=== PATIENT | male | born 1955 | race Two or more races ===

== ENCOUNTER 2024-02-21 15:29 | Emergency (ER) | payer MEDICARE, MEDICAID, SELFPAY ==
--- NOTE | 2024-02-21 15:33 | EKG_ITS ---
[facility] Test Date: 2024-02-21 Pat Name: HOMERO IGNACIO Department: Room: - Gender: Male Detail Supervisor: : 1955 Requested By: Alexis Moura (PERMASTONE APPLICATOR) Order Number: [id number] Reading MD: Alexis Moura (PERMASTONE APPLICATOR) Measurements Intervals [place] Rate: 84 P: 36 MS: 145 QRS: 9 QRSD: 92 T: 34 QT: 368 QTc: 437 Interpretive Statements SINUS RHYTHM Compared to ECG 05/15/2023 11:26:15 T-wave abnormality no longer present /store/S0/[id number]
[2024-02-21 15:40] VITALS: BP 124/89; PULSE 116; RESP 18; TEMP 36.4; O2SAT 95
[2024-02-21 15:53] VITALS: BP 135/85; PULSE 93; RESP 18; TEMP 36.5; O2SAT 98; BMI 29.0
--- NOTE | 2024-02-21 15:54 | XR_ITS ---
Examination: CT brain head without contrast. 2-D sagittal coronal reconstructions Date and time of exam:February 21, 2024 1559 hours INDICATIONS: Onset headaches dizziness blurred vision episodes today COMPARISON: May 15, 2023 CTDI: vol (mGy):49.4 DLP: (mGycm):1082 Technique: Multiple CT axial sections of the brain have been obtained, 5 mm slice thickness. Contrast has not been administered. 2-D sagittal, coronal reconstructions have been obtained Low dose protocols were performed. One or more of the following dose reduction techniques were used; automated exposure control, adjustment of the mA and/or KV according to patient size, use of iterative reconstruction technique. Findings: No significant ventricular enlargement. Intra-axial or extra-axial hemorrhage density is not seen. No mass effect or midline shift Basal cisterns are not remarkable. Fourth ventricle is midline. Cranial vault intact. Impression: Negative for acute hemorrhage, mass effect or midline shift His symptoms persist, consider brain MRI follow-up stroke protocol
--- NOTE | 2024-02-21 15:55 | PD.EDRME ---
Rapid Medical Screening Exam RME Arrival date/time: 02/21/24 15:29 68-year-old male presents to the emergency department today with complaints of chest pain patient was reports inability to see out of his right eye x 2 weeks patient was seen by lobster man Chief Complaint: Chest Pain Time Seen by Provider: 02/21/24 15:33 Vital signs: Vital Signs Temperature 97.6 F 02/21/24 15:40 Pulse Rate 116 H 02/21/24 15:40 Respiratory Rate 18 02/21/24 15:40 Blood Pressure 124/89 H 02/21/24 15:40 Pulse Oximetry (%) 95 02/21/24 15:40 Oxygen Delivery Method Room Air 02/21/24 15:40
[2024-02-21 16:33] LABS: Basophils # (Auto) 0.1 Thou/mm3 (0.0-0.2); Basophils % (Auto) 1 % (0-2.5); Eosinophils # (Auto) 0.1 Thou/mm3 (0.0-0.5); Eosinophils % (Auto) 2 % (0-10); Hemoglobin 12.2 g/dL (13.5-16.0); Immature Granulocytes % (Auto) 0 % (0-0); Immature Granulocytes Auto 0.02 Thou/mm3 (0.00-0.00); Lymphocytes # (Auto) 1.7 Thou/mm3 (1.0-4.8); Lymphocytes % (Auto) 24 % (10-50); Mean Corpuscular HGB Conc 33.9 g/dl (31.0-37.0); Mean Corpuscular Hemoglobin 29.8 pg (25.0-35.0); Mean Corpuscular Volume 88 fL (80-100); Monocytes # (Auto) 0.7 Thou/mm3 (0.0-0.8); Monocytes % (Auto) 9 % (0-12); Neutrophils # (Auto) 4.6 Thou/mm3 (1.8-7.7); Neutrophils % (Auto) 64 % (37-80); Nucleated Red Blood Cell % 0 /100 WBC (0); Platelet Count 250 Thou/mm3 (140-440); RDW Standard Deviation 41.5 fL (35.1-43.9); Red Blood Count 4.09 Miln/mm3 (4.50-5.90); White Blood Count 7.2 Thou/mm3 (3.8-10.6)
[2024-02-21 16:49] LABS: INR 1.1 (0.9-1.3); Partial Thromboplastin Time 27.3 Seconds (22.0-36.0); Prothrombin Time 12.1 Seconds (9.0-12.2)
[2024-02-21 16:53] LABS: B-Type Natriuretic Peptide < 20 pg/mL (0-100)
[2024-02-21 16:55] LABS: Alanine Aminotransferase 26 U/L (10-49); Albumin, Serum 4.2 gm/dL (3.4-4.8); Albumin/Globulin Ratio 1.7 (1.2-2.2); Alkaline Phosphatase 87 U/L (46-116); Anion Gap 7 (7-16); Aspartate Amino Transferase 19 U/L (0-34); BUN/Creatinine Ratio 11 Ratio (12-20); Bilirubin,Total 0.5 mg/dL (0.3-1.2); Blood Urea Nitrogen 10 mg/dL (9-23); Calcium 8.6 mg/dL (8.3-10.6); Calcium (Corrected) 8.6 mg/dL (8.5-10.1); Carbon Dioxide 27.1 mMol/L (20.0-31.0); Chloride 104 mMol/L (98-107); Creatinine (Component) 0.9 mg/dL (0.6-1.3); Estimated Creatinine Clearance 80.2 mL/min (>60); Globulin 2.5 gm/dL (2.3-3.5); Glucose 122 mg/dL (74-106); Magnesium 2.1 mg/dL (1.6-2.6); Osmolality,Calculated 275 (275-295); Potassium 3.9 mMol/L (3.4-5.1); Sodium 138 mMol/L (136-145); Total Protein 6.7 gm/dL (5.7-8.2); Troponin I < 0.020 ng/mL (0.0-0.045); eGFR > 60 See Note
[2024-02-21 17:55] LABS: Amphetamine/Methamp Scrn,U Negative (Negative); Barbiturate Screen,Urine Negative (Negative); Benzodiazepines Screen,Urine Positive (Negative); Benzoylecgonine Screen, Ur Negative (Negative); Fentanyl Screen,Urine Negative (Negative); Opiate Screen,Urine Negative (Negative); THC Screen,Urine Negative (Negative)
--- NOTE | 2024-02-21 18:02 | PD.EDADULT ---
ED General RME/HPI General Chief complaint: Chest Pain Stated complaint: chest pain / blurry vision Time Seen by Provider: 02/21/24 15:33 Arrival date/time: 02/21/24 15:29 CC: Chest pain and blindness in 1 eye HPI ongoing chest pain since 1 hour prior to arrival blindness in the eye has been 2 weeks patient was seen by brewery representative who determined that the patient had a retinal vein occlusion. Patient was placed on eyedrops by that brewery representative. Patient states he has had chronic pain for some time. Intermittent in nature RME / HPI RME / HPI narrative: 02/21/24 15:29 68-year-old male presents to the emergency department today with complaints of chest pain patient was reports inability to see out of his right eye x 2 weeks patient was seen by brewery representative Related Data Home Medications ?Medication ?Instructions ?Recorded ?Confirmed alprazolam 1 mg tablet 1 mg PO BID PRN Anxiety 08/02/21 08/03/21 aspirin 81 mg tablet,delayed 81 mg PO QDAY 08/02/21 08/03/21 release atorvastatin 80 mg tablet 80 mg PO QDAY 08/02/21 08/03/21 ezetimibe 10 mg tablet 10 mg PO QDAY 08/02/21 08/03/21 folic acid 1 mg tablet 1 mg PO QDAY 08/02/21 08/03/21 hydrocodone 10 mg-acetaminophen 1 tab PO BID PRN Pain 08/02/21 08/03/21 325 mg tablet isosorbide mononitrate 60 mg 60 mg PO QDAY 08/02/21 08/03/21 tablet,extended release 24 hr metoprolol succinate 25 mg capsule 25 mg PO QDAY 08/02/21 08/03/21 sprinkle, ext. release 24 hr nifedipine 30 mg tablet,extended 30 mg PO QDAY 08/02/21 08/03/21 release pantoprazole 40 mg tablet,delayed 40 mg PO QDAY 08/02/21 08/03/21 release paroxetine HCl 20 mg tablet 20 mg PO QDAY 08/02/21 08/03/21 Previous Rx's ?Medication ?Instructions ?Recorded doxycycline hyclate 100 mg tablet 100 mg PO QDAY #7 tabs 08/06/21 Allergies Allergy/AdvReac Type Severity Reaction Status Date / Time strawberry Allergy Intermediate Irritable Verified 12/04/24 15:31 Latex, Natural Rubber Allergy Mild Rash Verified 02/21/24 15:31 carvedilol Allergy Unknown Anaphylaxis Verified 02/21/24 15:31 Corticosteroids Allergy Unknown Verified 02/21/24 15:31 (Glucocorticoids) Review of Systems Review of Systems Narrative Review of Systems: GEN: No fever, no chills, no weight loss EYES: No discharge, no visual changes, no pain HEENT: No ear pain, no congestion, no sore throat PULM: No shortness of breath, no cough, no congestion CV: + chest pain, no dyspnea on exertion, no palpitations GI: No nausea, no vomiting, no diarrhea, no pain, no constipation : No frequency, no urgency, no dysuria MUSC/SKEL: No joint pain, no back pain SKIN: No rash PSYCH: No hallucinations, no depression HEME/LYMPH: No easy bleeding or bruising tendencies NEURO: No weakness, no headache Past Medical History Past Medical History NEUROLOGIC: Negative Seizures CARDIAC: Positive Cardiac Disorders, Myocardial Infarction, Angina, Coronary Artery Disease, Peripheral Vascular Disease, Hypercholesterolemia and Hypertension; Negative Congestive Heart Failure RESPIRATORY: Positive Pneumonia; Negative Chronic Obstructive Pulmonary Disease (COPD) or Asthma GASTROINTESTINAL: Positive Diverticulitis GENITOURINARY: Negative Renal Disease ENDOCRINE: Positive Diabetes Mellitus Type 2; Negative Diabetes Mellitus Type 1 HEMATOLOGIC: Negative Sickle Cell Disease OTHER HISTORY: Positive Hospitalization and Blood Transfusions; Negative Blood Transfusion Reaction or Anesthesia Reactions Family History FAMILY HISTORY: Positive Family Cardiac Disorders Surgical History SURGICAL: Positive Cardiac Surgery, Coronary Artery Bypass Graft, Coronary Stent, Cardiac Catheterization and Angiogram Social History SMOKING STATUS: Never smoker SUBSTANCE USE: does not use ED Exam Narrative Physical exam: [General: Not in any acute distress Head normocephalic HEENT: Within acceptable limits Neck is supple nontender Chest equal chest rise nontender to palpation Respiratory: Clear to auscultation no wheezes crackles or rubs CV: Rate rhythm is regular no murmurs rubs or clicks Abdomen is soft nontender no masses positive bowel sounds all 4 quadrants Back: No CVA tenderness no spinous process tenderness from cervical spine thoracic and lumbar spine Skin: Intact no petechiae rash induration ulceration or crepitus Extremities: Moving all extremity against resistance cap refill less than 2 seconds neurosensory intact Neuro: Awake alert oriented x3 Glascow coma 15 no focal deficits] Course Quality Measures none Orders Category Date Time Status EKG (ED ONLY) *Do not use* NOW Care 02/21/24 15:[address] head/brain wo con Stat Exams 02/21/24 15:54 Completed EKG (ED Only) Stat Exams 02/21/24 15:33 Draft B-Type Natriuretic Peptide Stat Lab 02/21/24 16:04 Completed CBC Stat Lab 02/21/24 16:04 Completed Comprehensive Metabolic Panel Stat Lab 02/21/24 16:04 Completed Drug Screen,Urine Stat Lab 02/21/24 17:33 Completed Magnesium Stat Lab 02/21/24 16:04 Completed Partial Thromboplastin Time Stat Lab 02/21/24 16:04 Completed Prothrombin Time with INR Stat Lab 02/21/24 16:04 Completed Troponin I Stat Lab 02/21/24 16:04 Completed Troponin I Stat Lab 02/21/24 18:37 Completed Vital Signs Vital signs: Vital Signs Temperature 97.6 F 02/21/24 15:40 Pulse Rate 116 H 02/21/24 15:40 Respiratory Rate 18 02/21/24 15:40 Blood Pressure 124/89 H 02/21/24 15:40 Pulse Oximetry (%) 95 02/21/24 15:40 Oxygen Delivery Method Room Air 02/21/24 15:40 [facility] Patient data External records reviewed:: [facility] previous records Clinical information provided by:: patient Social determinants that could affect healthcare access:: none Patient has the following chronic illnesses:: Chronic chest pain How is presenting disease/condition affected by chronic disease/condition?: uneffected by Evaluation data The following diagnostics were reviewed and interpreted by me:: lab results, radiology exam(s) and EKG tracing(s) Lab and/or radiology exams considered but not ordered:: EKG performed at 1556 shows a ventricular rate of 84 MS interval 145 QRS of 92 QTc of 4 9 is normal sinus rhythm. CBC shows no acute leukocytosis anemia thrombocytopenia CMP shows no acute electrolyte imbalances other than mildly elevated glucose, no renal impairment transaminitis or T. bili elevation Troponin is negative BNP is negative Urine is negative Chest x-ray is negative for any acute finding requires emergent or immediate intervention CT of the head is interpreted by me read by radiology as negative for any acute finding requires emergent immediate intervention. Interpretation Summary: Blindness in the eye was identified clearly by the brewery representative for retinal vein occlusion. CT of the head is negative. Patient has a heart score of 3 will repeat the troponin if negative patient will be discharged home Medications Medications considered but not ordered:: None Medication administrations:: None Consultations Consultation(s) initiated? (list below): No Diagnosis Differential Diagnosis ED Complaint MDM: Chest pain Most likely diagnosis given after review of the tests above:: Chest pain Admission Indicated Admission indicated?: not indicated Explain why admission is indicated or not indicated:: Stable for outpatient follow-up Admission Request Was there a request for admission?: No Disposition Plan Disposition Plan: Discharge Discharge Attestation Discharge Attestation: The patient and all family members were given an opportunity to ask questions and understood the discharge instructions. Discharge instructions specifically effects, indications for sooner follow up or return to the emergency department, and the expected course of current diagnosis. Patient condition: Stable Medical Decision Making Differential Diagnosis Differential Diagnosis: Chest pain Lab Data 02/21/24 16:04 02/21/24 16:04 Labs: Lab Results 02/21/24 02/21/24 02/21/24 Range/Units 16:04 17:33 18:37 WBC 7.2 (3.8-10.6) Thou/mm3 RBC 4.09 L (4.50-5.90) Miln/mm3 Hgb 12.2 L (13.5-16.0) g/dL Hct 36.0 L (41.0-53.0) % MCV 88 (80-100) fL MCH 29.8 (25.0-35.0) pg MCHC 33.9 (31.0-37.0) g/dl RDW Std Deviation 41.5 (35.1-43.9) fL Plt Count 250 (140-440) Thou/mm3 Neut % (Auto) 64 (37-80) % Lymph % (Auto) 24 (10-50) % Potter % (Auto) 9 (0-12) % Eos % (Auto) 2 (0-10) % Baso % (Auto) 1 (0-2.5) % Neut # (Auto) 4.6 (1.8-7.7) Thou/mm3 Lymph # (Auto) 1.7 (1.0-4.8) Thou/mm3 Potter # (Auto) 0.7 (0.0-0.8) Thou/mm3 Eos # (Auto) 0.1 (0.0-0.5) Thou/mm3 Baso # (Auto) 0.1 (0.0-0.2) Thou/mm3 Immature Gran # (Auto) 0.02 H (0.00-0.00) Thou/mm3 Absolute Nucleated RBC 0.00 (0.00-0.00) Thou/mm3 Immature Gran % 0 (0-0) % Nucleated RBC % 0 (0) /100 WBC PT 12.1 (9.0-12.2) Seconds INR 1.1 (0.9-1.3) APTT 27.3 (22.0-36.0) Seconds Sodium 138 (136-145) mMol/L Potassium 3.9 (3.4-5.1) mMol/L Chloride 104 (98-107) mMol/L Carbon Dioxide 27.1 (20.0-31.0) mMol/L Anion Gap 7 (7-16) BUN 10 (9-23) mg/dL Creatinine 0.9 (0.6-1.3) mg/dL Estim Creat Clear Calc 80.2 (>60) mL/min eGFR > 60 (60 - ) See Note BUN/Creatinine Ratio 11 L (12-20) Ratio Glucose 122 H (74-106) mg/dL Calculated Osmolality 275 (275-295) Calcium 8.6 (8.3-10.6) mg/dL Corrected Calcium 8.6 (8.5-10.1) mg/dL Magnesium 2.1 (1.6-2.6) mg/dL Total Bilirubin 0.5 (0.3-1.2) mg/dL AST 19 (0-34) U/L ALT 26 (10-49) U/L Alkaline Phosphatase 87 (46-116) U/L Troponin I < 0.020 < 0.020 (0.0-0.045) ng/mL B-Natriuretic Peptide < 20 (0-100) pg/mL Total Protein 6.7 (5.7-8.2) gm/dL Albumin 4.2 (3.4-4.8) gm/dL Globulin 2.5 (2.3-3.5) gm/dL Albumin/Globulin Ratio 1.7 (1.2-2.2) Urine Opiates Screen Negative (Negative) Urine Fentanyl Screen Negative (Negative) Ur Barbiturates Screen Negative (Negative) U Amphetamin/Meth Scrn Negative (Negative) U Benzodiazepines Scrn Positive A (Negative) U Cocaine Metab Screen Negative (Negative) U Marijuana (THC) Screen Negative (Negative) Discharge Plan Plan Patient Disposition: HOME (Self Care) Patient condition on transfer: Stable Prescriptions/Referrals Prescriptions/Med Rec: No Action doxycycline hyclate 100 mg tablet 100 mg PO QDAY Qty: 7 0RF nifedipine 30 mg Tablet Extended Release 30 mg PO QDAY paroxetine HCl 20 mg Tablet 20 mg PO QDAY ezetimibe 10 mg Tablet 10 mg PO QDAY atorvastatin 80 mg Tablet 80 mg PO QDAY aspirin 81 mg Tablet,Delayed Release (Dr/Ec) 81 mg PO QDAY isosorbide mononitrate 60 mg Tablet Extended Release 24 Hr 60 mg PO QDAY folic acid 1 mg Tablet 1 mg PO QDAY metoprolol succinate 25 mg Capsule,Sprinkle,Er 24hr 25 mg PO QDAY pantoprazole 40 mg Tablet,Delayed Release (Dr/Ec) 40 mg PO QDAY alprazolam 1 mg Tablet 1 mg PO BID PRN (Reason: Anxiety) hydrocodone-acetaminophen 10-325 mg Tablet 1 tab PO BID PRN (Reason: Pain) Problem List Clinical Impression: Chest pain Patient/Caregiver Discharge Instructions Education Materials: ED Chest Pain, Uncertain Cause Print Language: Cymraes Stand Alone Forms: [place] Award Info., Work/School Release, Patient Portal Info Letter PA/SUPERVISOR LIVESTOCK YARD Supervising Physician PA/SUPERVISOR LIVESTOCK YARD Supervising Physician: Rei Jessica ENP
[2024-02-21 18:17] VITALS: BP 118/88; PULSE 63; RESP 7; O2SAT 95
[2024-02-21 18:21] VITALS: BP 118/88; PULSE 73; RESP 16; TEMP 37; O2SAT 95
[2024-02-21 19:10] LABS: Troponin I < 0.020 ng/mL (0.0-0.045)
== END 2024-02-21 20:03 | disposition home or self-care (01) ==
LOC: SERX 19:25
PROVIDERS: Nurse Practitioner Primary Care; Registered Nurse General Practice; Emergency Provider Emergency Medicine
DX: R07.9 Chest pain, unspecified (principal); R51.9 Headache, unspecified; R42 Dizziness and giddiness; H53.8 Other visual disturbances; E78.00 Pure hypercholesterolemia, unspecified; I25.10 Atherosclerotic heart disease of native coronary artery without angina pectoris; I10 Essential (primary) hypertension; I25.2 Old myocardial infarction; Z95.5 Presence of coronary angioplasty implant and graft
CPT/HCPCS: 36415; 70450; 80053; 80307; 83735; 83880; 84484; 85025; 85610; 85730; 93005; 99284

== ENCOUNTER → 2024-06-05 | Outpatient (CLI) | payer MEDICARE, MEDICAID, SELFPAY ==
[2024-06-05 10:44] LABS: Basophils # (Auto) 0.1 Thou/mm3 (0.0-0.2); Basophils % (Auto) 1 % (0-2.5); Eosinophils # (Auto) 0.1 Thou/mm3 (0.0-0.5); Eosinophils % (Auto) 2 % (0-10); Hematocrit 29.9 % (41.0-53.0); Immature Granulocytes % (Auto) 0 % (0-0); Lymphocytes # (Auto) 1.3 Thou/mm3 (1.0-4.8); Lymphocytes % (Auto) 30 % (10-50); Mean Corpuscular HGB Conc 27.4 g/dl (31.0-37.0); Mean Corpuscular Hemoglobin 17.4 pg (25.0-35.0); Mean Corpuscular Volume 64 fL (80-100); Monocytes # (Auto) 0.5 Thou/mm3 (0.0-0.8); Monocytes % (Auto) 11 % (0-12); Neutrophils # (Auto) 2.5 Thou/mm3 (1.8-7.7); Neutrophils % (Auto) 57 % (37-80); Nucleated Red Blood Cell % 0 /100 WBC (0); Platelet Count 296 Thou/mm3 (140-440); RDW Standard Deviation 46.9 fL (35.1-43.9); Red Blood Count 4.71 Miln/mm3 (4.50-5.90); White Blood Count 4.5 Thou/mm3 (3.8-10.6)
[2024-06-05 10:46] LABS: Hemoglobin 8.2 g/dL (13.5-16.0)
[2024-06-05 11:07] LABS: Anion Gap 9 (7-16); BUN/Creatinine Ratio 13 Ratio (12-20); Blood Urea Nitrogen 10 mg/dL (9-23); Calcium 8.8 mg/dL (8.3-10.6); Carbon Dioxide 26.2 mMol/L (20.0-31.0); Chloride 102 mMol/L (98-107); Creatinine (Component) 0.8 mg/dL (0.6-1.3); Glucose 165 mg/dL (74-106); Osmolality,Calculated 276 (275-295); Potassium 4.2 mMol/L (3.4-5.1); Sodium 137 mMol/L (136-145); Thyroid Stimulating Hormone 2.32 uIU/mL (0.55-4.78); eGFR > 60 See Note
[2024-06-05 11:27] LABS: Path Review Blood Smear Sent to Pathologist
== END | disposition home or self-care (01) ==
LOC: COPL 10:18
PROVIDERS: PCP Internal Medicine Hospice and Palliative Medicine; Referring Provider Specialist; Visit Provider Specialist
DX: E11.9 Type 2 diabetes mellitus without complications (principal); E78.5 Hyperlipidemia, unspecified; E87.6 Hypokalemia
CPT/HCPCS: 36415; 80048; 84443; 85025

== ENCOUNTER → 2024-07-29 | Outpatient (CLI) | payer MEDICARE, MEDICAID, SELFPAY ==
[2024-07-29 12:04] LABS: Alanine Aminotransferase 19 U/L (10-49); Albumin, Serum 4.3 gm/dL (3.4-4.8); Alkaline Phosphatase 80 U/L (46-116); Anion Gap 8 (7-16); Aspartate Amino Transferase 16 U/L (0-34); BUN/Creatinine Ratio 16 Ratio (12-20); Bilirubin,Direct 0.2 mg/dL (0.0-0.3); Bilirubin,Total 0.7 mg/dL (0.3-1.2); Blood Urea Nitrogen 11 mg/dL (9-23); Calcium 8.3 mg/dL (8.3-10.6); Carbon Dioxide 26.5 mMol/L (20.0-31.0); Cardiac Risk Estimate 2.5 RATIO (4.0-6.7); Chloride 106 mMol/L (98-107); Cholesterol 89 mg/dL (132-200); Creatinine (Component) 0.7 mg/dL (0.6-1.3); Glucose 147 mg/dL (74-106); HDL Cholesterol 36 mg/dL (40-60); LDL Cholesterol,Calculated 42 mg/dL (0-130); Osmolality,Calculated 281 (275-295); Potassium 4.1 mMol/L (3.4-5.1); Sodium 140 mMol/L (136-145); Triglycerides 57 mg/dL (30-150); eGFR > 60 See Note
[2024-07-29 12:44] LABS: Glucose Estimated Average 146 mg/dL (80-131); Hemoglobin A1C 6.7 % Hgb (4.8-6.0)
== END | disposition home or self-care (01) ==
LOC: COPL 10:12
PROVIDERS: PCP Internal Medicine Hospice and Palliative Medicine; Referring Provider Specialist; Visit Provider Specialist
DX: E11.9 Type 2 diabetes mellitus without complications (principal); E87.6 Hypokalemia; E78.5 Hyperlipidemia, unspecified
CPT/HCPCS: 36415; 80048; 80061; 80076; 83036

== ENCOUNTER 2024-09-12 08:32 | Inpatient (IN) | payer MEDICARE, MEDICAID, SELFPAY ==
[2024-09-12] VITALS (17 sets, daily range): BP systolic 97–130; BP diastolic 68–85; PULSE 60–96; RESP 15–23; TEMP 36.1–37.1; O2SAT 95–100; BMI 29.0
--- NOTE | 2024-09-12 08:38 | EKG_ITS ---
[facility] Test Date: 2024-09-12 Pat Name: HOMERO IGNACIO Department: Room: - Gender: Male Rock Duster: : 1955 Requested By: Estuardo Guerra Order Number: [id number] Reading MD: Estuardo Guerra Measurements Intervals [place] Rate: 92 P: 3 OK: 124 QRS: 5 QRSD: 105 T: 43 QT: 378 QTc: 468 Interpretive Statements SINUS RHYTHM Compared to ECG 02/21/2024 15:56:37 No significant changes /store/S0/[id number]/[id number]
--- NOTE | 2024-09-12 09:00 | PC.NURSE ---
Patient came to the ED due to black stools X2 days, hx of diverticulitis. FSBS 206, BP 89/68, along with nausea, and weakness, and increased dizziness when he get up. Patient took Januvia, Nitro for chest pressure at home, has resolved now. Patient being assessed by Dr. Javier at this time, POC updated.
--- NOTE | 2024-09-12 09:06 | PD.EDWEAK ---
ED Weakness RME/HPI General Chief complaint: Weakness Stated complaint: Weak, dizzy, dark stools Time Seen by Provider: 09/12/24 09:03 Arrival date/time: 09/12/24 08:32 Limitations: no limitations RME / HPI RME / HPI Narrative: 67 year old male with history of CAD s/p PCI, quadruple bypass, hypertension, diabetes, hyperlipidemia presents to the ED BIBA from home for evaluation of abdominal pain beginning 3 days ago. The abdominal pain is described as crampy and located in the lower abdomen. Accompanied by dark stools over the past few days, intermittent constipation, and nausea without vomiting. In addition, reports chest pain this morning and took two Nitro at home. There is no significant change in appetite, and the patient has not noted any weight loss or fever. Related Data Home Medications ?Medication ?Instructions ?Recorded ?Confirmed alprazolam 1 mg tablet 1 mg PO BID PRN Anxiety 08/02/21 08/03/21 aspirin 81 mg tablet,delayed 81 mg PO QDAY 08/02/21 08/03/21 release atorvastatin 80 mg tablet 80 mg PO QDAY 08/02/21 08/03/21 ezetimibe 10 mg tablet 10 mg PO QDAY 08/02/21 08/03/21 folic acid 1 mg tablet 1 mg PO QDAY 08/02/21 08/03/21 hydrocodone 10 mg-acetaminophen 1 tab PO BID PRN Pain 08/02/21 08/03/21 325 mg tablet isosorbide mononitrate 60 mg 60 mg PO QDAY 08/02/21 08/03/21 tablet,extended release 24 hr metoprolol succinate 25 mg capsule 25 mg PO QDAY 08/02/21 08/03/21 sprinkle, ext. release 24 hr nifedipine 30 mg tablet,extended 30 mg PO QDAY 08/02/21 08/03/21 release pantoprazole 40 mg tablet,delayed 40 mg PO QDAY 08/02/21 08/03/21 release paroxetine HCl 20 mg tablet 20 mg PO QDAY 08/02/21 08/03/21 Previous Rx's ?Medication ?Instructions ?Recorded doxycycline hyclate 100 mg tablet 100 mg PO QDAY #7 tabs 08/06/21 Allergies Allergy/AdvReac Type Severity Reaction Status Date / Time strawberry Allergy Intermediate Irritable Verified 09/12/24 08:37 Latex, Natural Rubber Allergy Mild Rash Verified 09/12/24 08:37 carvedilol Allergy Unknown Anaphylaxis Verified 09/12/24 08:37 Corticosteroids Allergy Unknown Verified 09/12/24 08:37 (Glucocorticoids) Review of Systems Review of Systems Systems Reviewed: All systems reviewed, normal except as documented Past Medical History Past Medical History CARDIAC: Positive Cardiac Disorders, Myocardial Infarction, Angina, Coronary Artery Disease, Peripheral Vascular Disease and Hypercholesterolemia RESPIRATORY: Positive Pneumonia GASTROINTESTINAL: Positive Diverticulitis ENDOCRINE: Positive Diabetes Mellitus Type 2 OTHER HISTORY: Positive Hospitalization and Blood Transfusions Family History FAMILY HISTORY: Positive Family Cardiac Disorders Surgical History SURGICAL: Positive Cardiac Surgery, Coronary Artery Bypass Graft, Coronary Stent, Cardiac Catheterization and Angiogram; Negative Eye Surgery Social History SMOKING STATUS: Former smoker SUBSTANCE USE: does not use ED Exam General Limitations: Present no limitations General appearance: Present alert and in no apparent distress Head Head exam: Present atraumatic Eye Eye exam: Present normal appearance, PERRL and EOMI ENT ENT exam: Present normal exam, normal oropharynx and mucous membranes moist Neck Neck exam: Present normal inspection, full ROM and trachea midline Chest Chest inspection: Present normal inspection and symmetric chest wall rise Respiratory Respiratory exam: Present normal lung sounds bilaterally Cardiovascular Cardiovascular exam: Present regular rate, normal rhythm and normal heart sounds Abdominal Exam Abdominal exam: Present soft, tenderness (in the lower abdomen) and normal bowel sounds Rectal Exam Rectal exam: Present heme (+) stool and black stool Extremities Exam Extremities exam: Present normal inspection and full ROM Back Exam Back exam: Present normal inspection and full ROM Neurological Exam Neurological exam: Present alert, oriented X3 and CN II-XII intact Psychiatric Psychiatric exam: Present normal affect and normal mood Skin Skin exam: Present warm, dry, intact and normal color Course Quality Measures none Orders Category Date Time Status CT Screening NOW Care 09/12/24 09:[address] Screening NOW Care 09/12/24 09:52 Active EKG (ED ONLY) *Do not use* NOW Care 09/12/24 08:38 Completed Grigsby [Urinary Catheter] QS Care 09/12/24 11:23 Active Insert IV STAT Care 09/12/24 09:11 Active Intake and Output Routine Care 09/12/24 09:11 Ordered Orthostatic Vitals NOW Care 09/12/24 09:[address] abdomen pelvis w con Stat Exams 09/12/24 09:51 Completed EKG (ED Only) Stat Exams 09/12/24 08:38 Draft Ammonia Stat Lab 09/12/24 09:35 Completed CBC Stat Lab 09/12/24 09:35 Completed Comprehensive Metabolic Panel Stat Lab 09/12/24 09:35 Completed Lipase Stat Lab 09/12/24 09:35 Completed Partial Thromboplastin Time Stat Lab 09/12/24 09:35 Completed Path Review Blood Smear Stat Lab 09/12/24 09:35 Completed Prothrombin Time with INR Stat Lab 09/12/24 09:35 Completed Troponin I Stat Lab 09/12/24 09:35 Completed Famotidine Inj [Pepcid Inj] Med 09/12/24 09:11 Discontinued 20 mg IVP X1 ONE Pantoprazole Inj [Protonix Inj] Med 09/12/24 09:11 Discontinued 40 mg IVP X1 ONE Sodium Chloride 0.9% 1000 ml [Ns] 1,000 ml Med 09/12/24 09:11 Discontinued IV 999 mls/hr Vital Signs Vital signs: Vital Signs Temperature 98.7 F 09/12/24 08:57 Pulse Rate 96 09/12/24 08:57 Respiratory Rate 16 09/12/24 08:57 Blood Pressure 112/76 09/12/24 08:57 Pulse Oximetry (%) 98 09/12/24 08:57 Pulse ox is 98% on room air which is adequate. Weakness MDM Narrative MDM Narrative:: Katy Mancini am scribing for and in the presence of Dr. Javier. Assessment: Abdominal pain with GI bleeding, most likely diverticulitis, r/o upper GI, most likely lower GI bleed. Plan: Abdomen pelvis CT, blood work 67 year old male presented to the ED for evaluation of abdominal pain that has been present for the past 3 days. The pain is described as crampy and localized to the lower abdomen. The patient also reports dark stools over the last few days, intermittent constipation, and nausea without vomiting. On examination, his abdominal pain and symptoms are concerning for a possible gastrointestinal issue, with the dark stools raising suspicion for GI bleed. Labs show severe anemia with a hemoglobin/hematocrit of 5.6/19.7, which is concerning for active bleeding or significant blood loss. The patient's PT/PTT is within normal limits, suggesting no coagulopathy. A CT abdomen and pelvis reveals a gastritis pattern with no abnormal accumulation of contrast in the GI tract. GI Dr. Bashir agreed to evaluate the patient. The patient was admitted to the hospitalist team for further workup, management of anemia, and observation of his gastrointestinal symptoms. Patient data External records reviewed:: [facility] previous records (I reviewed ED visit on 02/21/2024 for chest pain ) Clinical information provided by:: patient Social determinants that could affect healthcare access:: none Patient has the following chronic illnesses:: CAD s/p PCI, quadruple bypass, hypertension, diabetes, hyperlipidemia How is presenting disease/condition affected by chronic disease/condition?: exacerbated by Evaluation data The following diagnostics were reviewed and interpreted by me:: lab results, radiology exam(s) and EKG tracing(s) (09/12/2024 @ 08:49 AM. NSR, rate 92, no axis deviation, no ischemia, normal QT intervals ) Lab and/or radiology exams considered but not ordered:: None Interpretation Summary: Ordering Physician: Hong Anderson MD Date of Service: 09/12/24 Procedure(s): CT abdomen pelvis w con Accession Number(s): [id number] cc: Hong Anderson MD; ANTWAN SILVA MD; Oscar Singleton MD~ Examination: CT abdomen with intravenous contrast CT pelvis with intravenous contrast 2-D coronal reconstructions 2-D sagittal reconstructions Date and time of exam:September 12, 2024 1036 hours INDICATIONS: Heart stools generalized abdominal pain beginning 3 days ago, diagnosis gastrointestinal bleeding. CTDI: vol (mGy) 7.95 DLP: (mGycm) 521 Technique: Multiple axial sections of the abdomen and pelvis have been obtained. 64 slice high-resolution scanner used. 3 mm axial sections have been obtained, post intravenous injection 60 cc [id number] 2-D sagittal, coronal reconstructions obtained. Low dose protocols were performed. One or more of the following dose reduction techniques were used; automated exposure control, adjustment of the mA and/or KV according to patient size, use of iterative reconstruction technique. Findings: This is a non-CTA study which limits assessment for gastrointestinal bleeding. Gastric mucosa is thickened No focal liver or splenic lesion No gallstones No pancreatic mass No adrenal mass No renal or ureteral calculi, no hydronephrosis No contrast accumulation in the gastrointestinal tract Colonic diverticulosis, no diverticulitis Rectal wall does not appear thickened Transverse prostate dimension 5 cm No urinary bladder mass IMPRESSION: Gastritis pattern No abnormal contrast accumulation in the gastrointestinal tract Consider nuclear medicine gastrointestinal bleeding study follow-up as clinically warranted Dictated By: Oscar Singleton MD Signed By: <Electronically signed by Oscar Singleton MD in OV> 09/12/24 1104 Medications / Prescriptions Medications or Prescriptions considered but not ordered:: None Medication administrations:: Medication Administration History Discontinued Medications Famotidine (Famotidine Inj 10 Mg/Ml Vial 2 Ml) 20 mg IVP X1 ONE Stop: 09/12/24 09:12 Last Admin: 09/12/24 09:44 Dose: 20 mg Documented By: ER Sodium Chloride (Ns) 1,000 mls @ 999 mls/hr IV .Q1H1M ONE Stop: 09/12/24 10:11 Last Admin: 09/12/24 09:42 Dose: 999 mls/hr Documented By: ER Pantoprazole Sodium (Pantoprazole Inj 40 Mg Vial) 40 mg IVP X1 ONE Stop: 09/12/24 09:12 Last Admin: 09/12/24 09:46 Dose: 40 mg Documented By: ER See above Consultations Consultation(s) initiated? (list below): Yes Consultation #1 (Physician, Specialty, Details): I spoke with GI Dr. Bashir. Discussed patients PMHx, HPI, ED course, exam findings, labs, and radiology results. He agrees to consult. Time: 11:28 Diagnosis Weakness Differential Diagnosis: acute myocardial infarction, anemia, hypothyroidism, sepsis and dehydration Most likely diagnosis given after review of the tests above:: GI bleed Severe anemia Admission Indicated Admission indicated?: indicated Admission Request Was there a request for admission?: Yes Admission Attestation Admission request attestation: 1125: Discussed case with resident from Hospitalist service regarding admission. Discussed patients ED course, exam findings, labs, and radiology results. The Hospitalist [agrees,declines] to accept the patient for admission. Disposition Plan Disposition Plan: Admit Critical Care Time Critical Care Time Critical Care Time: Yes Total Critical Care Time (min.): 60 Attestation: The high probability of sudden, clinically significant deterioration in the patient's condition required the highest level of my preparedness to intervene urgently. The services I provided to this patient were to treat and/or prevent clinically significant deterioration. Services included the following: chart data review, reviewing nursing notes and/or old charts, documentation time, instructional systems design consultant collaboration regarding findings and treatment options, medication orders and management, direct patient care, vital sign assessments and ordering, interpreting and reviewing diagnostic studies and lab tests. Aggregate critical care time includes only time during which I was engaged in work directly related to the patient's care, as described above, whether at bedside or elsewhere in the Emergency Department. It did not include time spent performing other reported procedures or the services of residents, students, nurses or physician assistants. Discharge Plan Plan Patient Disposition: Admit Acute Care w/in Hospital Prescriptions/Referrals Prescriptions/Med Rec: No Action doxycycline hyclate 100 mg tablet 100 mg PO QDAY Qty: 7 0RF nifedipine 30 mg Tablet Extended Release 30 mg PO QDAY paroxetine HCl 20 mg Tablet 20 mg PO QDAY ezetimibe 10 mg Tablet 10 mg PO QDAY atorvastatin 80 mg Tablet 80 mg PO QDAY aspirin 81 mg Tablet,Delayed Release (Dr/Ec) 81 mg PO QDAY isosorbide mononitrate 60 mg Tablet Extended Release 24 Hr 60 mg PO QDAY folic acid 1 mg Tablet 1 mg PO QDAY metoprolol succinate 25 mg Capsule,Sprinkle,Er 24hr 25 mg PO QDAY pantoprazole 40 mg Tablet,Delayed Release (Dr/Ec) 40 mg PO QDAY alprazolam 1 mg Tablet 1 mg PO BID PRN (Reason: Anxiety) hydrocodone-acetaminophen 10-325 mg Tablet 1 tab PO BID PRN (Reason: Pain) Referrals: Antwan Silva MD [Primary Care Provider] - In 1 week Problem List Clinical Impression: GI bleed, Severe anemia Patient/Caregiver Discharge Instructions Print Language: [place] Stand Alone Forms: [facility] Award Info., Patient Portal Info Letter
[2024-09-12] MEDS: SODIUM CHLORIDE 0.9% 1000 ML 1,000 ML 999 ML IV (09:42)
[2024-09-12] MEDS: FAMOTIDINE INJ 10 MG/ML VIAL 2 ML 20 MG IVP (09:44)
[2024-09-12 09:45] LABS: Basophils % (Auto) 1 % (0-2.5); Eosinophils % (Auto) 1 % (0-10); Immature Granulocytes % (Auto) 0 % (0-0); Immature Granulocytes Auto 0.02 Thou/mm3 (0.00-0.00); Lymphocytes # (Auto) 0.8 Thou/mm3 (1.0-4.8); Lymphocytes % (Auto) 14 % (10-50); Mean Corpuscular HGB Conc 28.4 g/dl (31.0-37.0); Mean Corpuscular Hemoglobin 16.3 pg (25.0-35.0); Mean Corpuscular Volume 57 fL (80-100); Monocytes # (Auto) 0.4 Thou/mm3 (0.0-0.8); Monocytes % (Auto) 7 % (0-12); Neutrophils # (Auto) 4.2 Thou/mm3 (1.8-7.7); Neutrophils % (Auto) 77 % (37-80); Nucleated Red Blood Cell % 0 /100 WBC (0); Platelet Count 258 Thou/mm3 (140-440); RDW Standard Deviation 43.4 fL (35.1-43.9); Red Blood Count 3.43 Miln/mm3 (4.50-5.90); White Blood Count 5.5 Thou/mm3 (3.8-10.6)
[2024-09-12] MEDS: PANTOPRAZOLE INJ 40 MG VIAL IVP ×2 (09:46→20:40)
--- NOTE | 2024-09-12 09:51 | XR_ITS ---
Examination: CT abdomen with intravenous contrast CT pelvis with intravenous contrast 2-D coronal reconstructions 2-D sagittal reconstructions Date and time of exam:September 12, 2024 1036 hours INDICATIONS: Heart stools generalized abdominal pain beginning 3 days ago, diagnosis gastrointestinal bleeding. CTDI: vol (mGy) 7.95 DLP: (mGycm) 521 Technique: Multiple axial sections of the abdomen and pelvis have been obtained. 64 slice high-resolution scanner used. 3 mm axial sections have been obtained, post intravenous injection 60 cc [id number] 2-D sagittal, coronal reconstructions obtained. Low dose protocols were performed. One or more of the following dose reduction techniques were used; automated exposure control, adjustment of the mA and/or KV according to patient size, use of iterative reconstruction technique. Findings: This is a non-CTA study which limits assessment for gastrointestinal bleeding. Gastric mucosa is thickened No focal liver or splenic lesion No gallstones No pancreatic mass No adrenal mass No renal or ureteral calculi, no hydronephrosis No contrast accumulation in the gastrointestinal tract Colonic diverticulosis, no diverticulitis Rectal wall does not appear thickened Transverse prostate dimension 5 cm No urinary bladder mass IMPRESSION: Gastritis pattern No abnormal contrast accumulation in the gastrointestinal tract Consider nuclear medicine gastrointestinal bleeding study follow-up as clinically warranted
[2024-09-12 09:53] LABS: Hematocrit 19.7 % (41.0-53.0); Hemoglobin 5.6 g/dL (13.5-16.0)
[2024-09-12 10:01] LABS: INR 1.1 (0.9-1.3); Partial Thromboplastin Time 23.4 Seconds (22.0-36.0); Prothrombin Time 12.1 Seconds (9.0-12.2)
[2024-09-12 10:02] LABS: Alanine Aminotransferase 27 U/L (10-49); Albumin, Serum 3.9 gm/dL (3.4-4.8); Albumin/Globulin Ratio 1.8 (1.2-2.2); Alkaline Phosphatase 71 U/L (46-116); Ammonia < 10 uMol/L (11-32); Anion Gap 7 (7-16); Aspartate Amino Transferase 20 U/L (0-34); BUN/Creatinine Ratio 11 Ratio (12-20); Bilirubin,Total 0.5 mg/dL (0.3-1.2); Blood Urea Nitrogen 9 mg/dL (9-23); Calcium 8.2 mg/dL (8.3-10.6); Calcium (Corrected) 8.3 mg/dL (8.5-10.1); Carbon Dioxide 26.9 mMol/L (20.0-31.0); Chloride 105 mMol/L (98-107); Creatinine (Component) 0.8 mg/dL (0.6-1.3); Estimated Creatinine Clearance 90.3 mL/min (>60); Globulin 2.2 gm/dL (2.3-3.5); Glucose 166 mg/dL (74-106); Lipase 39 U/L (12-53); Osmolality,Calculated 280 (275-295); Potassium 3.8 mMol/L (3.4-5.1); Sodium 139 mMol/L (136-145); Total Protein 6.1 gm/dL (5.7-8.2); Troponin I < 0.020 ng/mL (0.0-0.045); eGFR > 60 See Note
[2024-09-12 10:39] LABS: Path Review Blood Smear Sent to Pathologist
--- NOTE | 2024-09-12 16:09 | ESHP_ITS ---
<Statement entered by Rashaad Francisco MD - 09/13/24 07:15> I discussed with and supervised the industrial engineering intern physician involved in the care of this patient. Patient assessment and plan was discussed with entire medicine team, including my attending. I agree with the assessment and plan as documented by industrial engineering intern doctor. Patient care was discussed with my attending physician Dr. Angie Francisco, PGY-2 Documentation for date of: 09/12/24 HPI History of Present Illness History of present illness: History of Present Illness: 68 year-old male with PMHx of HTN, T2DM, HLD, CAD, s/p PCI x 2, angina pectoris, quadruple vessel bypass, and diverticular disease presenting with dark stool. Evidently he was in his normal state of health, however has been having feelings of dizziness and lightheadedness with standing up over the few days. Reports having dark stool over the last 2 days, which is new for him, associated with generalized abdominal pain and discomfort. Dizziness and lightheadedness has been worsening over the last 2 days, which prompted him to come to the ED. Additionally, he reports chest pain, which is chronic for him given his extensive cardiac history, however reports increasing frequency of these episodes over the last few days. Pain appears sharp in intensity, substernal, nonradiating, rates it 4-5 in intensity, nonexertional and occurs at rest. Denies headaches, visual changes, fever, chills, fall or trauma, syncope or presyncope, shortness of breath, cough, abdominal pain, N/V/D/C, dysuria, hematuria, urinary urgency or frequency. He has a history of GI bleed from 2019 with positive rectal bleed on nuclear bleeding scan. Colonoscopy at that time showed nonbleeding hemorrhoids and moderate diverticulosis of large intestine. Past Medical History: * Diverticular disease, angina pectoralis, CAD, s/p PCI x 2, quadruple vessel bypass, HTN, HLD, T2DM. Past Surgical History: * Cardiac surgical history as above, left thigh abscess I&D. Medications: * ASPIRIN 81 mg NITROGLYCERIN 400 PRN, LOSARTAN 50 mg, AMLODIPINE 5 mg daily, EZETIMIBE 10 mg, KCL 10 meq daily, FAMOTIDINE 40 mg daily, GABAPENTIN 100 mg PRN, ATORVASTATIN 80 mg daily, ASPIRIN 81 mg. Allergies: * [place] (irritation), latex (rash), CARVEDILOL (CEPHALEXIN), CORTICOSTEROID (unknown). Family History: * None relevant Social History: * Former smoker, denies alcohol or drug use. ED Course: * Afebrile, BP 112/76, HR 96, satting 98% on room air. * CBC showed Hgb 5.6, HCT 19.7, MCV 57, no leukocytosis. * Coag panel WNL. * CHEM panel remarkable for corrected calcium 8.3, otherwise relatively WNL with negative troponin. Reason for admission: Acute GI blood loss anemia requiring transfusions. GI on board, patient n.p.o. for endoscopy today. Past Medical History Past Medical History CARDIAC: Positive Cardiac Disorders, Myocardial Infarction, Angina, Coronary Artery Disease, Peripheral Vascular Disease and Hypercholesterolemia RESPIRATORY: Positive Pneumonia GASTROINTESTINAL: Positive Diverticulitis ENDOCRINE: Positive Diabetes Mellitus Type 2 OTHER HISTORY: Positive Hospitalization and Blood Transfusions Family History FAMILY HISTORY: Positive Family Cardiac Disorders Surgical History SURGICAL: Positive Cardiac Surgery, Coronary Artery Bypass Graft, Coronary Stent, Cardiac Catheterization and Angiogram; Negative Eye Surgery Social History SMOKING STATUS: Former smoker SUBSTANCE USE: does not use Exam Vital Signs Temp Pulse Resp BP Pulse Ox O2 Del Method 98.2 F 73 18 129/77 100 Room Air 09/12/24 15:00 09/12/24 15:00 09/12/24 15:00 09/12/24 15:00 09/12/24 15:00 09/12/24 15:00 Narrative Exam GENERAL * Normal appearing male, NAD, on room air satting well. HEENT * NCAT.?TRANG. Oral mucosa is moist. Patent Nares NECK * Supple, nontender, no JVD. CHEST * RRR, no m/g/r * CTAB, no w/r/r, symmetrical expansion. ABDOMEN * Soft, flat, mildly tender to palpation diffusely. * No guarding/rebound tenderness/masses. * Bowel sounds presents EXTREMITIES * No edema/cyanosis.? SKIN * Warm and dry, no jaundice/rashes. NEUROMUSCULAR * No lumbar or midline, no CVA, no paraspinal muscle spasm or tenderness. * Moves all 4 extremities well, with full ROM and good CSM. * DIAZ x4, CN II-XII grossly intact. * No focal neurologic deficits. PSYCHIATRY * Normal mood and affect, cooperative, no SI or HI or hallucinations. Results: Labs 09/13/24 02:07 09/13/24 02:07 Labs: Short CBC 09/12/24 Range/Units 09:35 WBC 5.5 (3.8-10.6) Thou/mm3 Hgb 5.6 L* (13.5-16.0) g/dL Hct 19.7 L* (41.0-53.0) % Plt Count 258 (140-440) Thou/mm3 BMP 09/12/24 09:35 Sodium 139 Potassium 3.8 Chloride 105 Carbon Dioxide 26.9 BUN 9 Creatinine 0.8 Glucose 166 H Calcium 8.2 L Cardiac Enzymes 09/12/24 Range/Units 09:35 Troponin I < 0.020 (0.0-0.045) ng/mL Liver Function 09/12/24 Range/Units 09:35 Total Bilirubin 0.5 (0.3-1.2) mg/dL AST 20 (0-34) U/L ALT 27 (10-49) U/L Alkaline Phosphatase 71 (46-116) U/L Albumin 3.9 (3.4-4.8) gm/dL Quality Measures Quality Measures none Advance care planning discussed with:: patient Medications Home Medications and Allergies Home Medications ?Medication ?Instructions ?Recorded ?Confirmed ?Type alprazolam 1 mg tablet 1 mg PO BID PRN Anxiety 07/1809/12/24 History aspirin 81 mg tablet,delayed 81 mg PO QDAY 08/02/21 History release atorvastatin 80 mg tablet 40 mg PO QDAY 08/02/2109/12 History ezetimibe 10 mg tablet 10 mg PO QDAY 08/02/2109/12 History folic acid 1 mg tablet 1 mg PO QDAY 08/02/21 History hydrocodone 10 mg-acetaminophen 1 tab PO BID PRN Pain 08/02/21 09/12/24 History 325 mg tablet pantoprazole 40 mg tablet,delayed 40 mg PO QDAY 09/12/24 History release paroxetine HCl 20 mg tablet 20 mg PO QDAY 08/02/21 History amlodipine 5 mg tablet 5 mg PO DAILY 09/12/2409/12 History furosemide 20 mg tablet 20 mg PO .q3day 09/12/24 History gabapentin 100 mg capsule 100 mg PO PRN 09/12/2409/12 History nitroglycerin 400 mcg/spray 400 mcg [id number] 09/12/24 History translingual potassium chloride 10 mEq 20 meq PO .q3da 09/12/24 History tablet,extended release sitagliptin phosphate 25 mg tablet 25 mg PO QDAY 09/1209/12/24 History (Januvia) propylene glycol 0.6 % eye drops 1 drp ophthalmic (eye ) BID PRN dry 09/13/24 09/13/24 History (Systane Complete) eye(s) Allergies Allergy/AdvReac Type Severity Reaction Status Date / Time strawberry Allergy Intermediate Irritable Verified 09/12/24 08:37 Latex, Natural Rubber Allergy Mild Rash Verified 09/12/24 08:37 carvedilol Allergy Unknown Anaphylaxis Verified 09/12/24 08:37 Corticosteroids Allergy Unknown Verified 09/12/24 08:37 (Glucocorticoids) Visit Medications Acetaminophen (Acetaminophen 325 Mg Tablet) 650 mg PO Q6H PRN PRN Reason: Fever >100.4 Stop: 10/12/24 12:20 Acetaminophen (Ofirmev Inj) 1,000 mg in 100 mls @ 250 mls/hr IV Q6HR PRN PRN Reason: pain and fever >100.4 Stop: 09/13/24 06:23 Ondansetron HCl (Ondansetron Inj 2 Mg/Ml Inj 2 Ml) 4 mg IVP Q6H PRN; Protocol PRN Reason: NAUSEA OR VOMITING Stop: 10/12/24 12:20 Pantoprazole Sodium (Pantoprazole Inj 40 Mg Vial) 40 mg IVP BID KAREN Stop: 10/12/24 20:59 Discontinued Medications Acetaminophen (Acetaminophen 325 Mg Tablet) 650 mg PO X1 ONE Stop: 09/12/24 11:27 Diphenhydramine HCl (Diphenhydramine 25 Mg Capsule) 25 mg PO X1 ONE Stop: 09/12/24 11:27 Famotidine (Famotidine Inj 10 Mg/Ml Vial 2 Ml) 20 mg IVP X1 ONE Stop: 09/12/24 09:12 Last Admin: 09/12/24 09:44 Dose: 20 mg Furosemide (Furosemide Inj 10 Mg/Ml Vial 2 Ml) 40 mg IVP X1 ONE Stop: 09/12/24 11:27 Sodium Chloride (Ns) 1,000 mls @ 999 mls/hr IV .Q1H1M ONE Stop: 09/12/24 10:11 Last Infusion: 09/12/24 10:43 Dose: Infused Pantoprazole Sodium (Pantoprazole Inj 40 Mg Vial) 40 mg IVP X1 ONE Stop: 09/12/24 09:12 Last Admin: 09/12/24 09:46 Dose: 40 mg Pantoprazole Sodium (Pantoprazole Inj 40 Mg Vial) 40 mg IVP QDAY KAREN Stop: 10/12/24 12:29 Last Admin: 09/12/24 14:17 Dose: Not Given Assessment & Plan Plan This is a 68 year-old male with PMHx of HTN, T2DM, HLD, CAD, s/p PCI x 2, angina pectoris, quadruple vessel bypass, and diverticular disease presenting with dark stool. Appreciate recommendations from GI team. Acute, symptomatic GI bleed anemia Hx diverticular disease Presenting with 2 days of dark stool with symptoms of dizziness and lightheadedness. History of diverticular disease with previous admission for anemia in 2019; Colonoscopy done showed moderate diverticulosis and nonbleeding hemorrhoids. Admission Hgb 5.6, HCT 19.7. Coag panel WNL. Initiated 2 PRBC transfusion. GI consulted, n.p.o. for procedure later today. No history of cirrhosis or alcohol use, less likely variceal bleed, no indication for OCTREOTIDE at this time. CT abdominal pelvis showed gastritis, no abnormal contrast in the gastrointestinal tract, no liver pathology. ? Holding home ASPIRIN in settings of GI bleed ? Continue PROTONIX BID ? Follow-up posttransfusion H&H ? Transfuse Hgb less than 8 ? Continue n.p.o. for endoscopy/colonoscopy ? Iron panel after discharge ? Pending further recommendations from GI Angina pectoralis (chronic) Coronary artery disease S/p PCI stent x 2 S/p quadruple vessel bypass Endorsing increased frequency of chest pain episode as described in HPI. Well- controlled with NITROGLYCERIN PRN. Admission EKG shows sinus rhythm without acute ST changes. Troponin negative. ? Holding home ASPIRIN for recent above ? Continue NITROGLYCERIN PRN ? Pending repeat troponin ? Consider cardiology consult if indicated HTN HLD Currently normotensive. ? Continue home ATORVASTATIN 40 mg daily ? Continue home EZETIMIBE 10 mg daily ? Pending lipid panel Generalized anxiety disorder ? Continue home PAROXETINE 20 mg q. day ? Continue home ALPRAOLAM 1mg BID PRN Health maintenance Diet: NPO GI prophylaxis: PROTONIX DVT prophylaxis: Contraindicated in setting of bleed Antibiotics: Not indicated CODE STATUS: Full code Disposition: Admitted for acute GI blood loss anemia Case was discussed with attending physician and senior resident. Uriel Cooley DO PGYI This document was transcribed using voice recognition technology. Minor inaccuracies may be present. Attending Provider Attestation/Addendum Cecilia Mancini DO, attest that I was physically present for the [place] portions of the service and evaluated the patient with the resident and I reviewed and discussed the case with the resident and agree with the resident's findings and plans of care as documented above Patient is a 68-year-old male with past medical history of CAD, hyperlipidemia, diverticulosis, type 2 diabetes who presented to the ED with generalized weakness, near syncope and chest pain. Patient states for the past 2-1/2 days he has been having dark stools. Patient denies any pre or postprandial abdominal pain. He states that he noted that he was having worsening dyspnea on exertion and generalized weakness. He states that he was feeding his animals this morning before coming to the hospital and felt that he was going to syncopized due to lightheadedness. In the ED, he was noted to have an hemoglobin of 5.8 on presentation. He also endorses having mild chest pain that resolved with nitroglycerin. 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 EKG does not show any ST or T wave changes. Abdomen pelvis CT was done in the ED showing gastritis pattern, but no active bleeding. Patient states he had a previous GI bleed about 5 years ago during which he underwent endoscopy and was found to have diverticulosis. Patient denies any recent travel or history of gastric ulcers. Will admit patient to telemetry for further workup and medical management of acute blood loss anemia secondary to acute GI bleed. Patient currently receiving 2 units of PRBCs. Will repeat hemoglobin after transfusion with goal hemoglobin of greater than 8 due to history of CAD. Will also repeat troponin. Patient endorses taking aspirin, but does not take any other antiplatelets or anticoagulants at home. Will continue to trend H&H. GI consulted from ED. Will place patient on clear liquid diet and follow-up with GI recommendations. Patient otherwise denies any nausea, vomiting, hematemesis, abdominal pain or bright red blood per rectum. He also denies any use of NSAIDs at home.
[2024-09-12] MEDS: ONDANSETRON INJ 2 MG/ML INJ 2 ML 4 MG IVP (19:31)
--- NOTE | 2024-09-12 20:20 | PD.IMCONS ---
HPI Data of Consult Requesting Physician: Cecilia Adams DO Primary Care Provider: Suhas Nelson MD Consult Narrative Reason for consult: H&H 5.6 and 19.7 melena History of present illness: 68-year-old male present to the hospital with abdominal pain and dark melanotic stools CT scan of the abdomen pelvis with contrast showed gastritis pattern Patient does have a history of coronary artery disease status post PCI CABG essential hypertension diabetes mellitus type 2 and hyperlipidemia cc:: cc: Cecilia Adams DO Review of Systems Review of Systems Systems Reviewed: All systems reviewed, normal except as documented Past Medical History Surgical History OTHER SURGICAL HX: As in the history of present illness Meds Home Medications and Allergies Home Medications ?Medication ?Instructions ?Recorded ?Confirmed ?Type alprazolam 1 mg tablet 1 mg PO BID PRN Anxiety 08/02/21 09/12/24 History aspirin 81 mg tablet,delayed 81 mg PO QDAY 08/02/21 09/12/24 History release atorvastatin 80 mg tablet 40 mg PO QDAY 08/02/21 09/12/24 History ezetimibe 10 mg tablet 10 mg PO QDAY 08/02/21 09/12/24 History folic acid 1 mg tablet 1 mg PO QDAY 08/02/21 09/12/24 History hydrocodone 10 mg-acetaminophen 1 tab PO BID PRN Pain 08/02/21 09/12/24 History 325 mg tablet pantoprazole 40 mg tablet,delayed 40 mg PO QDAY 08/02/21 09/12/24 History release paroxetine HCl 20 mg tablet 20 mg PO QDAY 08/02/21 09/12/24 History amlodipine 5 mg tablet 5 mg PO DAILY 09/12/24 09/12/24 History furosemide 20 mg tablet 20 mg PO .q3day 09/12/24 09/12/24 History gabapentin 100 mg capsule 100 mg PO PRN 09/12/24 09/12/24 History nitroglycerin 400 mcg/spray 400 mcg [id number] 09/12/24 History translingual potassium chloride 10 mEq 20 meq PO .q3da 09/12/24 09/12/24 History tablet,extended release sitagliptin phosphate 25 mg tablet 25 mg PO QDAY 09/12/24 09/12/24 History (Januvia) Allergies Allergy/AdvReac Type Severity Reaction Status Date / Time strawberry Allergy Intermediate Irritable Verified 09/12/24 08:37 Latex, Natural Rubber Allergy Mild Rash Verified 09/12/24 08:37 carvedilol Allergy Unknown Anaphylaxis Verified 09/12/24 08:37 Corticosteroids Allergy Unknown Verified 09/12/24 08:37 (Glucocorticoids) Exam Vital Signs Temp Pulse Resp BP Pulse Ox O2 Del Method 97.4 F 66 23 H 123/73 98 Room Air 09/12/24 18:35 09/12/24 18:35 09/12/24 18:35 09/12/24 18:35 09/12/24 18:35 09/12/24 16:50 Constitutional Comments: Chronically ill-appearing Routine Respiratory Exam Comments: Normal to auscultation Routine Abdominal Exam Comments: Soft nontender Results Labs 09/12/24 20:20 09/12/24 09:35 Labs: Short CBC 09/12/24 Range/Units 09:35 WBC 5.5 (3.8-10.6) Thou/mm3 Hgb 5.6 L* (13.5-16.0) g/dL Hct 19.7 L* (41.0-53.0) % Plt Count 258 (140-440) Thou/mm3 BMP 09/12/24 09:35 Sodium 139 Potassium 3.8 Chloride 105 Carbon Dioxide 26.9 BUN 9 Creatinine 0.8 Glucose 166 H Calcium 8.2 L Cardiac Enzymes 09/12/24 Range/Units 09:35 Troponin I < 0.020 (0.0-0.045) ng/mL Liver Function 09/12/24 Range/Units 09:35 Total Bilirubin 0.5 (0.3-1.2) mg/dL AST 20 (0-34) U/L ALT 27 (10-49) U/L Alkaline Phosphatase 71 (46-116) U/L Albumin 3.9 (3.4-4.8) gm/dL Assessment and Plan Additional Assessment & Plan Additional Plan: # Acute posthemorrhagic anemia # Melena Plan Agree with blood transfusion IV Protonix Serial CBC Consent obtained for fiberoptic esophagogastroduodenoscopy with possible biopsy possible therapeutic intervention under intravenous moderate If EGD is negative we will consider doing a fiberoptic colonoscopy prior to discharge after GoLytely prep Other medical problems include Coronary artery disease status post PCI Status post CABG Essential hypertension Diabetes mellitus type 2 Hyperlipidemia Thank you very much for the opportunity to participate in the care of this patient
[2024-09-12] MEDS: ATORVASTATIN CALCIUM 20 MG TABLET 40 MG PO (20:40)
[2024-09-12] MEDS: EZETIMIBE 10 MG TABLET PO (20:40)
[2024-09-12] MEDS: PARoxetine HCL 10 MG TABLET 20 MG PO (20:40)
[2024-09-12 20:42] LABS: Basophils # (Auto) 0.1 Thou/mm3 (0.0-0.2); Basophils % (Auto) 1 % (0-2.5); Eosinophils # (Auto) 0.1 Thou/mm3 (0.0-0.5); Eosinophils % (Auto) 1 % (0-10); Hematocrit 28.3 % (41.0-53.0); Immature Granulocytes % (Auto) 0 % (0-0); Immature Granulocytes Auto 0.01 Thou/mm3 (0.00-0.00); Lymphocytes # (Auto) 1.3 Thou/mm3 (1.0-4.8); Lymphocytes % (Auto) 23 % (10-50); Mean Corpuscular HGB Conc 29.7 g/dl (31.0-37.0); Mean Corpuscular Hemoglobin 19.3 pg (25.0-35.0); Mean Corpuscular Volume 65 fL (80-100); Monocytes # (Auto) 0.6 Thou/mm3 (0.0-0.8); Monocytes % (Auto) 10 % (0-12); Neutrophils # (Auto) 3.6 Thou/mm3 (1.8-7.7); Neutrophils % (Auto) 64 % (37-80); Nucleated Red Blood Cell % 0 /100 WBC (0); Platelet Count 262 Thou/mm3 (140-440); RDW Standard Deviation 60.7 fL (35.1-43.9); Red Blood Count 4.36 Miln/mm3 (4.50-5.90); White Blood Count 5.6 Thou/mm3 (3.8-10.6)
[2024-09-12] MEDS: ACETAMINOPHEN IVPB 1,000 MG/100 ML VIAL 250 MG IV (20:57)
[2024-09-12 20:58] LABS: Hemoglobin 8.4 g/dL (13.5-16.0)
[2024-09-12 21:01] LABS: Troponin I < 0.020 ng/mL (0.0-0.045)
--- NOTE | 2024-09-12 22:53 | PC.NURSE ---
DR. MANDEL MADE AWARE OF UNCONTROLLED PAIN TO LOWER ABD/PELVIC REGION AND HEARTBURN. TYLENOL IV 1GM AND PROTONIX 40MG IV GIVEN TONIGHT. PT ALSO C/O OF OFF/ON BURNING PAIN WITH URINATION. BLADDER SCAN AT 474. VOIDED 400 ML AFTER BLADDER SCAN. ORDERS FOR UA GIVEN. MD TO LOOK OVER CHART FOR ADDITIONAL ORDERS.
[2024-09-12 23:37] LABS: Collection Type, Urine Clean Catch; Squamous Epithelial Cell,Urine 0 /hpf (0-5)
[2024-09-12 23:55] LABS: Bilirubin,Urine Negative (Negative); Blood,Urine Negative (Negative); Clarity,Urine Clear (Clear/Hazy); Color,Urine Lt-Yellow (Lt Yel-Yel); Culture Indicated,Urine Not Indicated; Glucose, Urine Negative (Negative); Ketones,Urine Trace (Negative); Leukocyte Esterase,Urine Negative (Negative); Nitrite,Urine Negative (Negative); Protein,Urine Negative (Neg - Trace); RBC,Urine 1 /hpf (0-3); Specific Gravity,Urine 1.017 (1.001-1.035); Urobilinogen,Urine Negative mg/dL (0.0-1.0); WBC,Urine < 1 /hpf (0-5)
[2024-09-13] VITALS (16 sets, daily range): BP systolic 91–121; BP diastolic 58–78; PULSE 55–84; RESP 13–21; TEMP 36–36.7; O2SAT 94–100; BMI 26.9
[2024-09-13] MEDS: HYDROcodone/APAP 5/325 TABLET 1 TAB PO (00:22)
[2024-09-13 02:19] LABS: Basophils # (Auto) 0.1 Thou/mm3 (0.0-0.2); Basophils % (Auto) 1 % (0-2.5); Eosinophils # (Auto) 0.1 Thou/mm3 (0.0-0.5); Eosinophils % (Auto) 2 % (0-10); Hematocrit 28.1 % (41.0-53.0); Immature Granulocytes % (Auto) 0 % (0-0); Lymphocytes # (Auto) 1.2 Thou/mm3 (1.0-4.8); Lymphocytes % (Auto) 23 % (10-50); Mean Corpuscular HGB Conc 29.9 g/dl (31.0-37.0); Mean Corpuscular Volume 64 fL (80-100); Monocytes # (Auto) 0.6 Thou/mm3 (0.0-0.8); Monocytes % (Auto) 12 % (0-12); Neutrophils # (Auto) 3.2 Thou/mm3 (1.8-7.7); Neutrophils % (Auto) 62 % (37-80); Nucleated Red Blood Cell % 0 /100 WBC (0); Platelet Count 253 Thou/mm3 (140-440); RDW Standard Deviation 57.7 fL (35.1-43.9); Red Blood Count 4.42 Miln/mm3 (4.50-5.90); White Blood Count 5.2 Thou/mm3 (3.8-10.6)
[2024-09-13 02:23] LABS: Hemoglobin 8.4 g/dL (13.5-16.0)
[2024-09-13 02:34] LABS: Alanine Aminotransferase 26 U/L (10-49); Albumin, Serum 4.1 gm/dL (3.4-4.8); Albumin/Globulin Ratio 1.5 (1.2-2.2); Alkaline Phosphatase 81 U/L (46-116); Anion Gap 7 (7-16); Aspartate Amino Transferase 21 U/L (0-34); BUN/Creatinine Ratio 6 Ratio (12-20); Bilirubin,Total 0.9 mg/dL (0.3-1.2); Blood Urea Nitrogen 5 mg/dL (9-23); Calcium 8.4 mg/dL (8.3-10.6); Calcium (Corrected) 8.4 mg/dL (8.5-10.1); Carbon Dioxide 25.1 mMol/L (20.0-31.0); Cardiac Risk Estimate 3.1 RATIO (4.0-6.7); Chloride 106 mMol/L (98-107); Cholesterol 110 mg/dL (132-200); Creatinine (Component) 0.8 mg/dL (0.6-1.3); Estimated Creatinine Clearance 98.4 mL/min (>60); Globulin 2.7 gm/dL (2.3-3.5); Glucose 122 mg/dL (74-106); HDL Cholesterol 36 mg/dL (40-60); LDL Cholesterol,Calculated 60 mg/dL (0-130); Magnesium 2.2 mg/dL (1.6-2.6); Osmolality,Calculated 273 (275-295); Phosphorous 3.2 mg/dL (2.4-5.1); Potassium 3.9 mMol/L (3.4-5.1); Sodium 138 mMol/L (136-145); Total Protein 6.8 gm/dL (5.7-8.2); Triglycerides 69 mg/dL (30-150); Troponin I < 0.020 ng/mL (0.0-0.045); eGFR > 60 See Note
--- NOTE | 2024-09-13 07:40 | ESPR_ITS ---
<Statement entered by Malika Schneider MD - 09/16/24 14:12> I Malika Schneider MD reviewed the note and agree with the resident's assessment & plan with exceptions as below. I have personally reviewed labs, imaging, home meds/prior records, examined the patient, formulated and discussed management plan with the IM team. 68-year-old male with extensive comorbidities presented to ED with melena with suspected upper GI bleed. Will start on Protonix IV twice daily, consult GI for EGD. Transfuse PRBC to keep hemoglobin> 7. Holding aspirin, resume home medications. <Statement entered by Rashaad Francisco MD - 09/13/24 18:38> I discussed with and supervised the international sales manager physician involved in the care of this patient. Patient assessment and plan was discussed with entire medicine team, including my attending. I agree with the assessment and plan as documented by international sales manager doctor. Patient care was discussed with my attending physician Dr. Wyatt Francisco, PGY-2 Documentation for date of: 09/13/24 Subjective Subjective Interval history: No acute overnight events. Continued n.p.o. for EGD later today. Has mild abdominal pain, also noted on exam in the epigastric region. Denies fever, chills, headaches, chest pain, sob, cough, other GI or urinary symptoms. Exam Vital Signs Temp Pulse Resp BP Pulse Ox O2 Del Method 97.2 F 67 16 110/71 98 Room Air 09/13/24 04:00 09/13/24 04:00 09/13/24 04:00 09/13/24 04:00 09/13/24 04:00 09/13/24 04:00 Narrative Exam GENERAL * Normal appearing male, NAD, on room air satting well. HEENT * NCAT.?TRANG. Oral mucosa is moist. Patent Nares NECK * Supple, nontender, no JVD. CHEST * RRR, no m/g/r * CTAB, no w/r/r, symmetrical expansion. ABDOMEN * Soft, flat, mildly tender to palpation diffusely. * No guarding/rebound tenderness/masses. * Bowel sounds presents EXTREMITIES * No edema/cyanosis.? SKIN * Warm and dry, no jaundice/rashes. NEUROMUSCULAR * No lumbar or midline, no CVA, no paraspinal muscle spasm or tenderness. * Moves all 4 extremities well, with full ROM and good CSM. * DIAZ x4, CN II-XII grossly intact. * No focal neurologic deficits. PSYCHIATRY * Normal mood and affect, cooperative, no SI or HI or hallucinations. Objective Labs 09/13/24 02:07 09/13/24 02:07 Labs: Laboratory Results - last 24 hr 09/12/24 09/12/24 09/12/24 09:35 11:55 20:20 WBC 5.5 5.6 RBC 3.43 L 4.36 L Hgb 5.6 L* 8.4 L D Hct 19.7 L* 28.3 L MCV 57 L 65 L MCH 16.3 L 19.3 L MCHC 28.4 L 29.7 L RDW Std Deviation 43.4 60.7 H Plt Count 258 262 Neut % (Auto) 77 64 Lymph % (Auto) 14 23 [place] % (Auto) 7 10 Eos % (Auto) 1 1 Baso % (Auto) 1 1 Neut # (Auto) 4.2 3.6 Lymph # (Auto) 0.8 L 1.3 [place] # (Auto) 0.4 0.6 Eos # (Auto) 0.0 0.1 Baso # (Auto) 0.0 0.1 Immature Gran # (Auto) 0.02 H 0.01 H Absolute Nucleated RBC 0.00 0.00 Immature Gran % 0 0 Nucleated RBC % 0 0 Smear Path Review Sent to Pathologist PT 12.1 INR 1.1 APTT 23.4 Sodium 139 Potassium 3.8 Chloride 105 Carbon Dioxide 26.9 Anion Gap 7 BUN 9 Creatinine 0.8 Estim Creat Clear Calc 90.3 eGFR > 60 BUN/Creatinine Ratio 11 L Glucose 166 H Calculated Osmolality 280 Calcium 8.2 L Corrected Calcium 8.3 L Phosphorus Magnesium Total Bilirubin 0.5 AST 20 ALT 27 Alkaline Phosphatase 71 Ammonia < 10 L Troponin I < 0.020 < 0.020 Total Protein 6.1 Albumin 3.9 Globulin 2.2 L Albumin/Globulin Ratio 1.8 Triglycerides Cholesterol LDL Cholesterol, Calc HDL Cholesterol Cholesterol/HDL Ratio Lipase 39 Ur Collection Type Urine Color Urine Clarity Urine pH Ur Specific [place] Urine Protein Urine Glucose (UA) Urine Ketones Urine Blood Urine Nitrite Urine Bilirubin Urine Urobilinogen (Auto) Ur Leukocyte Esterase Urine RBC Urine WBC Ur Squamous Epith Cells Urine Bacteria Ur Culture Indicated? Blood Type O Positive Antibody Screen NEGATIVE Crossmatch See Detail Blood Bank Wristband ID Yes 09/12/24 09/13/24 22:57 02:07 WBC 5.2 RBC 4.42 L Hgb 8.4 L Hct 28.1 L MCV 64 L MCH 19.0 L MCHC 29.9 L RDW Std Deviation 57.7 H Plt Count 253 Neut % (Auto) 62 Lymph % (Auto) 23 [place] % (Auto) 12 Eos % (Auto) 2 Baso % (Auto) 1 Neut # (Auto) 3.2 Lymph # (Auto) 1.2 [place] # (Auto) 0.6 Eos # (Auto) 0.1 Baso # (Auto) 0.1 Immature Gran # (Auto) 0.00 Absolute Nucleated RBC 0.00 Immature Gran % 0 Nucleated RBC % 0 Smear Path Review PT INR APTT Sodium 138 Potassium 3.9 Chloride 106 Carbon Dioxide 25.1 Anion Gap 7 BUN 5 L Creatinine 0.8 Estim Creat Clear Calc 98.4 eGFR > 60 BUN/Creatinine Ratio 6 L Glucose 122 H Calculated Osmolality 273 L Calcium 8.4 Corrected Calcium 8.4 L Phosphorus 3.2 Magnesium 2.2 Total Bilirubin 0.9 AST 21 ALT 26 Alkaline Phosphatase 81 Ammonia Troponin I < 0.020 Total Protein 6.8 Albumin 4.1 Globulin 2.7 Albumin/Globulin Ratio 1.5 Triglycerides 69 Cholesterol 110 L LDL Cholesterol, Calc 60 HDL Cholesterol 36 L Cholesterol/HDL Ratio 3.1 L Lipase Ur Collection Type Clean Catch Urine Color Lt-Yellow Urine Clarity Clear Urine pH 7.0 Ur Specific [place] 1.017 Urine Protein Negative Urine Glucose (UA) Negative Urine Ketones Trace Urine Blood Negative Urine Nitrite Negative Urine Bilirubin Negative Urine Urobilinogen (Auto) Negative Ur Leukocyte Esterase Negative Urine RBC 1 Urine WBC < 1 Ur Squamous Epith Cells 0 Urine Bacteria None Ur Culture Indicated? Not Indicated Blood Type Antibody Screen Crossmatch Blood Bank Wristband ID Quality Measures Quality Measures none Advance care planning discussed with:: patient Assessment & Plan Assessment Current Active Medications: Generic Name Dose Route Start Last Admin Trade Name Freq PRN Reason Stop Dose Admin Acetaminophen 650 mg 09/12/24 12:21 Acetaminophen 325 Mg Tablet PO 10/12/24 12:20 Q6H PRN Fever >100.4 Alprazolam 1 mg 09/12/24 19:34 Alprazolam 0.25 Mg Tablet PO 09/17/24 19:33 BID PRN Anxiety Atorvastatin Calcium 40 mg 09/12/24 19:45 09/12/24 20:40 Atorvastatin Calcium 20 Mg Tablet PO 10/12/24 19:44 40 mg QDAY KAREN Administration Ezetimibe 10 mg 09/12/24 19:45 09/12/24 20:40 Ezetimibe 10 Mg Tablet PO 10/12/24 19:44 10 mg QDAY KAREN Administration Folic Acid 1 mg 09/13/24 09:00 Folic Acid 1 Mg Tablet PO 10/13/24 08:59 QDAY KAREN Gabapentin 100 mg 09/13/24 09:00 Gabapentin 100 Mg Capsule PO 10/13/24 08:59 QDAY KAREN Nitroglycerin 0.4 mg 09/12/24 18:45 Nitroglycerin 0.4 Mg Subl Btl #25 SL 10/12/24 18:44 Q5M PRN CHEST PAIN Ondansetron HCl 4 mg 09/12/24 12:21 09/12/24 19:31 Ondansetron Inj 2 Mg/Ml Inj 2 Ml IVP 10/12/24 12:20 4 mg Q6H PRN Administration NAUSEA OR VOMITING Protocol Pantoprazole Sodium 40 mg 09/12/24 21:00 09/12/24 20:40 Pantoprazole Inj 40 Mg Vial IVP 10/12/24 20:59 40 mg BID KAREN Administration Paroxetine HCl 20 mg 09/12/24 18:45 09/12/24 20:40 Paroxetine Hcl 10 Mg Tablet PO 10/12/24 18:44 20 mg QDAY KAREN Administration Plan This is a 68 year-old male with PMHx of diverticular disease, HTN, T2DM, HLD, CAD, s/p PCI x 2, angina pectoris, and quadruple vessel bypass presenting with dark stool. Appreciate recommendations from GI team. Acute, symptomatic GI bleed anemia (stable) Hx diverticular disease Presenting with 2 days of dark stool with symptoms of dizziness and lightheadedness. History of diverticular disease with previous admission for anemia in 2019; Colonoscopy done showed moderate diverticulosis and nonbleeding hemorrhoids. Admission Hgb 5.6, HCT 19.7. Coag panel WNL. Initiated 2 PRBC transfusion. GI consulted, n.p.o. for procedure later today. No history of cirrhosis or alcohol use, less likely variceal bleed, no indication for OCTREOTIDE at this time. CT abdominal pelvis showed gastritis, no abnormal contrast in the gastrointestinal tract, no liver pathology. Hgb 8.4 and stable after 2 units PRBCs. ? Holding home ASPIRIN in settings of GI bleed ? Continue PROTONIX BID ? Follow-up posttransfusion H&H ? Transfuse Hgb less than 8 ? Continue n.p.o. for endoscopy/colonoscopy ? Iron panel after discharge ? Pending further recommendations from GI Angina pectoralis (chronic) Coronary artery disease S/p PCI stent x 2 S/p quadruple vessel bypass CHF unknown EF Endorsing increased frequency of chest pain episode as described in HPI. Well- controlled with NITROGLYCERIN PRN. Admission EKG shows sinus rhythm without acute ST changes. Troponin negative. Repeat troponin negative. Remains asymptomatic. He had stress test [address] Jose Harrell, he is on LASIX 20 mg every 3rd day. No signs or symptoms of CHF exacerbation or volume overload, will resume LASIX if need be. ? Holding home ASPIRIN for recent above ? Continue NITROGLYCERIN PRN ? Resume home LASIX on discharge or IP if indicated HTN HLD Currently normotensive. ? Continue home ATORVASTATIN 40 mg daily ? Continue home EZETIMIBE 10 mg daily ? Pending lipid panel Generalized anxiety disorder ? Continue home PAROXETINE 20 mg q. day ? Continue home ALPRAOLAM 1mg BID PRN Health maintenance Diet: NPO GI prophylaxis: PROTONIX DVT prophylaxis: Contraindicated in setting of bleed Antibiotics: Not indicated CODE STATUS: Full code Disposition: Admitted for acute GI blood loss anemia Case was discussed with attending physician and senior resident. DO CARLOS Fitzpatrick This document was transcribed using voice recognition technology. Minor inaccuracies may be present.
[2024-09-13] MEDS: PARoxetine HCL 10 MG TABLET 20 MG PO (08:26)
[2024-09-13] MEDS: GABAPENTIN 100 MG CAPSULE PO (08:26)
[2024-09-13] MEDS: EZETIMIBE 10 MG TABLET PO (08:27)
[2024-09-13] MEDS: FOLIC ACID 1 MG TABLET PO (08:27)
[2024-09-13] MEDS: ATORVASTATIN CALCIUM 20 MG TABLET 40 MG PO (08:27)
[2024-09-13] MEDS: PANTOPRAZOLE INJ 40 MG VIAL IVP (08:27)
[2024-09-13 08:42] LABS: Troponin I < 0.020 ng/mL (0.0-0.045)
[2024-09-13] MEDS: ALPRazoLAM 0.25 MG TABLET 1 MG PO (10:14)
--- NOTE | 2024-09-13 10:34 | CHAP ---
Patient was visited by the Spiritual Care Volunteer who prayed for them. (Volunteer was in the hospital from 09:30-10:34).
--- NOTE | 2024-09-13 10:55 | PC.SS ---
Patient is alert/oriented. Patient was able to verify demographics. Patient states he lives alone. Admitted for gi bleed. Patient stsates he was independent with ADL's prior to hospitalization. Patient states he was using [facility] for all his appointments. Paitent states he is getting an EGD today. His discharge plan is to return home. PcP: Dr. Nelson in [place]. Last appt. was last month. Alt medical decision maker: Galen Loza. No d/c needs. Alt medical decision maker: Galen Loza, d/c plan: home transortation: family or medi van
--- NOTE | 2024-09-13 13:52 | PC.PT ---
PT eval only. Patient is safe to ambulate to the bathroom and in the halls with no AD and no staff assist. RN made aware.
[2024-09-13 14:15] LABS: Troponin I < 0.020 ng/mL (0.0-0.045)
--- NOTE | 2024-09-13 17:19 | SUR.PHASEI ---
pt received from OR in recovery bay 1. pt asleep but responds to voice, breathing unlabored on 4l. report received from [place] GUO.
--- NOTE | 2024-09-13 17:50 | SUR.PHASEI ---
pt awake and alert, breathing unlabored on 1l nc. v/s stable. report called to Ester GUO. pt will be transferred to room at this time.
[2024-09-13] MEDS: PANTOPRAZOLE 40 MG TABLET PO (19:59)
[2024-09-13] MEDS: NA SU/NAHCO3/KC/PEG (Golytely) 4,000 ML BTL 4000 ML PO (20:00)
[2024-09-14] VITALS (16 sets, daily range): BP systolic 97–160; BP diastolic 64–95; PULSE 53–97; RESP 17–21; TEMP 36.2–36.9; O2SAT 92–98; BMI 27.3; BMI 27.4
[2024-09-14 06:38] LABS: Basophils # (Auto) 0.1 Thou/mm3 (0.0-0.2); Basophils % (Auto) 1 % (0-2.5); Eosinophils # (Auto) 0.1 Thou/mm3 (0.0-0.5); Eosinophils % (Auto) 2 % (0-10); Hematocrit 27.1 % (41.0-53.0); Immature Granulocytes % (Auto) 0 % (0-0); Immature Granulocytes Auto 0.02 Thou/mm3 (0.00-0.00); Lymphocytes # (Auto) 1.3 Thou/mm3 (1.0-4.8); Lymphocytes % (Auto) 20 % (10-50); Mean Corpuscular HGB Conc 29.9 g/dl (31.0-37.0); Mean Corpuscular Hemoglobin 19.4 pg (25.0-35.0); Mean Corpuscular Volume 65 fL (80-100); Monocytes # (Auto) 0.6 Thou/mm3 (0.0-0.8); Monocytes % (Auto) 9 % (0-12); Neutrophils # (Auto) 4.6 Thou/mm3 (1.8-7.7); Neutrophils % (Auto) 69 % (37-80); Nucleated Red Blood Cell % 0 /100 WBC (0); Platelet Count 258 Thou/mm3 (140-440); RDW Standard Deviation 57.7 fL (35.1-43.9); Red Blood Count 4.18 Miln/mm3 (4.50-5.90); White Blood Count 6.7 Thou/mm3 (3.8-10.6)
[2024-09-14 06:47] LABS: Hemoglobin 8.1 g/dL (13.5-16.0)
[2024-09-14 07:01] LABS: Alanine Aminotransferase 19 U/L (10-49); Albumin, Serum 3.8 gm/dL (3.4-4.8); Albumin/Globulin Ratio 1.6 (1.2-2.2); Alkaline Phosphatase 78 U/L (46-116); Anion Gap 8 (7-16); Aspartate Amino Transferase 16 U/L (0-34); BUN/Creatinine Ratio 9 Ratio (12-20); Bilirubin,Total 0.9 mg/dL (0.3-1.2); Blood Urea Nitrogen 7 mg/dL (9-23); Calcium 8.2 mg/dL (8.3-10.6); Calcium (Corrected) 8.4 mg/dL (8.5-10.1); Carbon Dioxide 25.7 mMol/L (20.0-31.0); Chloride 104 mMol/L (98-107); Creatinine (Component) 0.8 mg/dL (0.6-1.3); Globulin 2.4 gm/dL (2.3-3.5); Glucose 95 mg/dL (74-106); Osmolality,Calculated 273 (275-295); Phosphorous 3.3 mg/dL (2.4-5.1); Potassium 3.7 mMol/L (3.4-5.1); Sodium 138 mMol/L (136-145); Total Protein 6.2 gm/dL (5.7-8.2); eGFR > 60 See Note
[2024-09-14] MEDS: ATORVASTATIN CALCIUM 20 MG TABLET 40 MG PO (08:19)
[2024-09-14] MEDS: FOLIC ACID 1 MG TABLET PO (08:19)
[2024-09-14] MEDS: GABAPENTIN 100 MG CAPSULE PO (08:20)
[2024-09-14] MEDS: EZETIMIBE 10 MG TABLET PO (08:20)
[2024-09-14] MEDS: PANTOPRAZOLE 40 MG TABLET PO ×2 (08:20→20:25)
[2024-09-14] MEDS: PARoxetine HCL 10 MG TABLET 20 MG PO (08:20)
[2024-09-14] MEDS: ACETAMINOPHEN 325 MG TABLET 650 MG PO (13:52)
--- NOTE | 2024-09-14 16:09 | ESPR_ITS ---
<Statement entered by Malika Schneider MD - 09/16/24 14:11> I Malika Schneider MD reviewed the note and agree with the resident's assessment & plan with exceptions as below. I have personally reviewed labs, imaging, home meds/prior records, examined the patient, formulated and discussed management plan with the IM team. 68-year-old male with extensive comorbidities presented to ED with melena with suspected upper GI bleed. Patient had EGD revealing distal esophageal tumor. Continue Protonix IV twice daily, will start on gentle IV fluid resuscitation as the patient appears dehydrated. Will plan for colonoscopy tomorrow. Holding aspirin, resume home medications. Documentation for date of: 09/14/24 Subjective Subjective Interval history: No acute overnight events. Complaining of abdominal pain, feeling lightheaded, BP was soft this morning, likely dehydration, restarted IVF's. Continued n.p.o. for colonoscopy later today. Denies fever, chills, headaches, chest pain, sob, cough, other GI or urinary symptoms. Exam Vital Signs Temp Pulse Resp BP Pulse Ox O2 Del Method O2 Flow Rate 97.5 F 96 21 H 138/75 H 95 Room Air 3 09/14/24 12:00 09/14/24 16:05 09/14/24 16:05 09/14/24 16:05 09/14/24 16:05 09/14/24 12:00 09/14/24 16:05 Narrative Exam GENERAL * Normal appearing male, NAD, on room air satting well. HEENT * NCAT.?TRANG. Oral mucosa is moist. Patent Nares NECK * Supple, nontender, no JVD. CHEST * RRR, no m/g/r * CTAB, no w/r/r, symmetrical expansion. ABDOMEN * Soft, flat, mildly tender to palpation diffusely. * No guarding/rebound tenderness/masses. * Bowel sounds presents EXTREMITIES * No edema/cyanosis.? SKIN * Warm and dry, no jaundice/rashes. NEUROMUSCULAR * No lumbar or midline, no CVA, no paraspinal muscle spasm or tenderness. * Moves all 4 extremities well, with full ROM and good CSM. * DIAZ x4, CN II-XII grossly intact. * No focal neurologic deficits. PSYCHIATRY * Normal mood and affect, cooperative, no SI or HI or hallucinations. Objective Labs 09/14/24 05:48 09/14/24 05:48 Labs: Laboratory Results - last 24 hr 09/14/24 05:48 WBC 6.7 RBC 4.18 L Hgb 8.1 L Hct 27.1 L MCV 65 L MCH 19.4 L MCHC 29.9 L RDW Std Deviation 57.7 H Plt Count 258 Neut % (Auto) 69 Lymph % (Auto) 20 [place] % (Auto) 9 Eos % (Auto) 2 Baso % (Auto) 1 Neut # (Auto) 4.6 Lymph # (Auto) 1.3 [place] # (Auto) 0.6 Eos # (Auto) 0.1 Baso # (Auto) 0.1 Immature Gran # (Auto) 0.02 H Absolute Nucleated RBC 0.00 Immature Gran % 0 Nucleated RBC % 0 Sodium 138 Potassium 3.7 Chloride 104 Carbon Dioxide 25.7 Anion Gap 8 BUN 7 L Creatinine 0.8 Estim Creat Clear Calc 88.0 eGFR > 60 BUN/Creatinine Ratio 9 L Glucose 95 Calculated Osmolality 273 L Calcium 8.2 L Corrected Calcium 8.4 L Phosphorus 3.3 Magnesium 2.0 Total Bilirubin 0.9 AST 16 ALT 19 Alkaline Phosphatase 78 Total Protein 6.2 Albumin 3.8 Globulin 2.4 Albumin/Globulin Ratio 1.6 Quality Measures Quality Measures none Advance care planning discussed with:: patient Assessment & Plan Assessment Current Active Medications: Generic Name Dose Route Start Last Admin Trade Name Freq PRN Reason Stop Dose Admin Acetaminophen 650 mg 09/12/24 12:21 09/14/24 13:52 Acetaminophen 325 Mg Tablet PO 10/12/24 12:20 650 mg Q6H PRN Administration Fever >100.4 Alprazolam 1 mg 09/12/24 19:34 09/13/24 10:14 Alprazolam 0.25 Mg Tablet PO 09/17/24 19:33 1 mg BID PRN Administration Anxiety Artificial Tears 1 drop 09/13/24 10:55 Artificial Tears 225 Drop/15 Ml Btl BOTH EYES BID PRN dry eye(s) Atorvastatin Calcium 40 mg 09/12/24 19:45 09/14/24 08:19 Atorvastatin Calcium 20 Mg Tablet PO 10/12/24 19:44 40 mg QDAY KAREN Administration Bisacodyl 10 mg 09/14/24 15:11 Bisacodyl 10 Mg Supp MS 09/14/24 17:12 X1 PRN Gas pain Diphenhydramine HCl 25 mg 09/14/24 15:11 Diphenhydramine Inj 50 Mg/Ml Vial IVP 09/14/24 17:11 [id number] PRN MODERATE SEDATION Ezetimibe 10 mg 09/12/24 19:45 09/14/24 08:20 Ezetimibe 10 Mg Tablet PO 10/12/24 19:44 10 mg QDAY KAREN Administration Fentanyl Citrate 50 mcg 09/14/24 15:11 Fentanyl Cit Inj 50 Mcg/Ml Amp 2ml IVP 09/14/24 17:12 Q2M PRN MODERATE SEDATION Folic Acid 1 mg 09/13/24 09:00 09/14/24 08:19 Folic Acid 1 Mg Tablet PO 10/13/24 08:59 1 mg QDAY KAREN Administration Gabapentin 100 mg 09/13/24 09:00 09/14/24 08:20 Gabapentin 100 Mg Capsule PO 10/13/24 08:59 100 mg QDAY KAREN Administration Midazolam HCl 2 mg 09/14/24 15:11 Midazolam Inj 1 Mg/Ml Vial 2 Ml IVP 09/14/24 17:12 Q2M PRN Moderate Sedation Nitroglycerin 0.4 mg 09/12/24 18:45 Nitroglycerin 0.4 Mg Subl Btl #25 SL 10/12/24 18:44 Q5M PRN CHEST PAIN Ondansetron HCl 4 mg 09/12/24 12:21 09/12/24 19:31 Ondansetron Inj 2 Mg/Ml Inj 2 Ml IVP 10/12/24 12:20 4 mg Q6H PRN Administration NAUSEA OR VOMITING Protocol Pantoprazole Sodium 40 mg 09/13/24 21:00 09/14/24 08:20 Pantoprazole 40 Mg Tablet PO 10/13/24 20:59 40 mg BID KAREN Administration Protocol Paroxetine HCl 20 mg 09/12/24 18:45 09/14/24 08:20 Paroxetine Hcl 10 Mg Tablet PO 10/12/24 18:44 20 mg QDAY KAREN Administration Polyethylene Glycol/Electrolytes 4,000 ml 09/13/24 17:15 Na Hurst/Nahco3/Ghulam/Peg (Golytely) 4,000 Ml Btl PO X1 PRN IF PATIENT IS NOT CLEAN PLEASE START SECOND GALLON Plan This is a 68 year-old male with PMHx of diverticular disease, HTN, T2DM, HLD, CAD, s/p PCI x 2, angina pectoris, and quadruple vessel bypass presenting with dark stool. Appreciate recommendations from GI team. Acute, symptomatic GI bleed anemia (stable) Hx diverticular disease Presenting with 2 days of dark stool with symptoms of dizziness and lightheadedness. History of diverticular disease with previous admission for anemia in 2019; Colonoscopy done showed moderate diverticulosis and nonbleeding hemorrhoids. Admission Hgb 5.6, HCT 19.7. Coag panel WNL. Initiated 2 PRBC transfusion. GI consulted, n.p.o. for procedure later today. No history of cirrhosis or alcohol use, less likely variceal bleed, no indication for OCTREOTIDE at this time. CT abdominal pelvis showed gastritis, no abnormal contrast in the gastrointestinal tract, no liver pathology. Hgb 8.1 and stable after 2 units PRBCs. 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 Continued n.p.o. for colonoscopy, bowel clear, nonbloody. ? Holding home ASPIRIN in settings of GI bleed ? Continue PROTONIX BID ? Transfuse Hgb less than 8 ? Iron panel after discharge ? Pending further recommendations from GI ? Daily labs Angina pectoralis (chronic) Coronary artery disease S/p PCI stent x 2 S/p quadruple vessel bypass CHF unknown EF Endorsing increased frequency of chest pain episode as described in HPI. Well- controlled with NITROGLYCERIN PRN. Admission EKG shows sinus rhythm without acute ST changes. Troponin negative. Repeat troponin negative. Remains asymptomatic. He had stress test [address] Jose Harrell, he is on LASIX 20 mg every 3rd day. No signs or symptoms of CHF exacerbation or volume overload, will resume LASIX if need be. ? Holding home ASPIRIN for recent above ? Continue NITROGLYCERIN PRN ? Resume home LASIX on discharge or IP if indicated HTN HLD Currently normotensive. ? Continue home ATORVASTATIN 40 mg daily ? Continue home EZETIMIBE 10 mg daily ? Pending lipid panel Generalized anxiety disorder ? Continue home PAROXETINE 20 mg q. day ? Continue home ALPRAOLAM 1mg BID PRN Health maintenance Diet: NPO GI prophylaxis: PROTONIX DVT prophylaxis: Contraindicated in setting of bleed Antibiotics: Not indicated CODE STATUS: Full code Disposition: Admitted for acute GI blood loss anemia Case was discussed with attending physician and senior resident. DO CARLOS Fitzpatrick This document was transcribed using voice recognition technology. Minor inaccuracies may be present.
--- NOTE | 2024-09-14 16:14 | SUR.PHASEI ---
pt received from OR in recovery bay 5. pt asleep but responds to voice, breathing unlabored on nc 2l. v/s stable. report received from Lani Arango.
--- NOTE | 2024-09-14 16:44 | SUR.PHASEI ---
pt awake and alert, breathing unlabored on 1l nc. v/s stable. report called to Mariela Arango. pt will be transferred to room at this time.
[2024-09-14] MEDS: SODIUM CHLORIDE 0.9% 1000 ML 1,000 ML 125 ML IV (17:43)
[2024-09-14] MEDS: ALPRazoLAM 0.25 MG TABLET 1 MG PO (20:48)
[2024-09-15] VITALS (7 sets, daily range): BP systolic 98–120; BP diastolic 63–77; PULSE 18–82; RESP 16–18; TEMP 36.3–36.7; O2SAT 94–98; BMI 28.1
[2024-09-15] MEDS: SODIUM CHLORIDE 0.9% 1000 ML 1,000 ML 125 ML IV ×3 (01:51→17:31)
[2024-09-15 06:31] LABS: Basophils # (Auto) 0.1 Thou/mm3 (0.0-0.2); Basophils % (Auto) 1 % (0-2.5); Eosinophils # (Auto) 0.1 Thou/mm3 (0.0-0.5); Eosinophils % (Auto) 2 % (0-10); Hematocrit 26.1 % (41.0-53.0); Immature Granulocytes % (Auto) 0 % (0-0); Immature Granulocytes Auto 0.01 Thou/mm3 (0.00-0.00); Lymphocytes # (Auto) 1.8 Thou/mm3 (1.0-4.8); Lymphocytes % (Auto) 30 % (10-50); Mean Corpuscular HGB Conc 29.1 g/dl (31.0-37.0); Mean Corpuscular Hemoglobin 19.1 pg (25.0-35.0); Mean Corpuscular Volume 66 fL (80-100); Monocytes # (Auto) 0.7 Thou/mm3 (0.0-0.8); Monocytes % (Auto) 12 % (0-12); Neutrophils # (Auto) 3.2 Thou/mm3 (1.8-7.7); Neutrophils % (Auto) 55 % (37-80); Nucleated Red Blood Cell % 0 /100 WBC (0); Platelet Count 285 Thou/mm3 (140-440); RDW Standard Deviation 59.1 fL (35.1-43.9); Red Blood Count 3.98 Miln/mm3 (4.50-5.90); White Blood Count 5.8 Thou/mm3 (3.8-10.6)
[2024-09-15 06:37] LABS: Hemoglobin 7.6 g/dL (13.5-16.0)
[2024-09-15 07:19] LABS: Alanine Aminotransferase 15 U/L (10-49); Albumin, Serum 3.5 gm/dL (3.4-4.8); Albumin/Globulin Ratio 1.5 (1.2-2.2); Alkaline Phosphatase 71 U/L (46-116); Anion Gap 7 (7-16); Aspartate Amino Transferase 14 U/L (0-34); BUN/Creatinine Ratio 8 Ratio (12-20); Bilirubin,Total 0.6 mg/dL (0.3-1.2); Blood Urea Nitrogen 6 mg/dL (9-23); Calcium 8.1 mg/dL (8.3-10.6); Calcium (Corrected) 8.5 mg/dL (8.5-10.1); Carbon Dioxide 24.3 mMol/L (20.0-31.0); Chloride 108 mMol/L (98-107); Creatinine (Component) 0.8 mg/dL (0.6-1.3); Estimated Creatinine Clearance 87.4 mL/min (>60); Globulin 2.3 gm/dL (2.3-3.5); Glucose 93 mg/dL (74-106); Magnesium 1.9 mg/dL (1.6-2.6); Osmolality,Calculated 275 (275-295); Phosphorous 4.2 mg/dL (2.4-5.1); Sodium 139 mMol/L (136-145); Total Protein 5.8 gm/dL (5.7-8.2); eGFR > 60 See Note
[2024-09-15] MEDS: PARoxetine HCL 10 MG TABLET 20 MG PO (08:44)
[2024-09-15] MEDS: FOLIC ACID 1 MG TABLET PO (08:44)
[2024-09-15] MEDS: PANTOPRAZOLE 40 MG TABLET PO ×2 (08:44→21:15)
[2024-09-15] MEDS: GABAPENTIN 100 MG CAPSULE PO (08:44)
[2024-09-15] MEDS: ATORVASTATIN CALCIUM 20 MG TABLET 40 MG PO (08:44)
[2024-09-15] MEDS: EZETIMIBE 10 MG TABLET PO (08:44)
[2024-09-15 10:49] LABS: Hematocrit 28.9 % (41.0-53.0)
[2024-09-15 10:50] LABS: Hemoglobin 8.5 g/dL (13.5-16.0)
--- NOTE | 2024-09-15 16:09 | ESPR_ITS ---
<Statement entered by Malika Schneider MD - 09/16/24 14:15> I Malika Schneider MD reviewed the note and agree with the resident's assessment & plan with exceptions as below. I have personally reviewed labs, imaging, home meds/prior records, examined the patient, formulated and discussed management plan with the IM team. 68-year-old male with extensive comorbidities presented to ED with melena with suspected upper GI bleed. Patient had EGD revealing distal esophageal tumor. Colonoscopy did reveal hemorrhoids otherwise unremarkable. Pending esophageal biopsy results. Continue Protonix IV twice daily. Will hold on aspirin for another week. Hemoglobin stayed slightly decreased however on repeat remained stable. Not requiring any further transfusions, will do CT chest/abdomen/pelvis with contrast to evaluate for potential lesions. Late for the biopsy results, will get oncology on board for further management. Documentation for date of: 09/15/24 Subjective Subjective Interval history: Overnight patient underwent colonoscopy which indicated nonbleeding hemorrhoid and diverticulosis of sigmoid and descending colon. Morning hemoglobin at 7.6, repeated hemoglobin at 8.5. Anticipating discharging patient tomorrow if hemoglobin continues to be stable. Exam Vital Signs Temp Pulse Resp BP Pulse Ox O2 Del Method O2 Flow Rate 97.4 F 62 18 119/64 95 Room Air 1 09/15/24 11:48 09/15/24 11:48 09/15/24 11:48 09/15/24 11:48 09/15/24 11:48 09/15/24 11:48 09/15/24 04:00 Narrative Exam GENERAL * Normal appearing male, NAD, on room air satting well. HEENT * NCAT.?TRANG. Oral mucosa is moist. Patent Nares NECK * Supple, nontender, no JVD. CHEST * RRR, no m/g/r * CTAB, no w/r/r, symmetrical expansion. ABDOMEN * Soft, flat, nontender on palpation. * No guarding/rebound tenderness/masses. * Bowel sounds presents EXTREMITIES * No edema/cyanosis.? SKIN * Warm and dry, no jaundice/rashes. NEUROMUSCULAR * No lumbar or midline, no CVA, no paraspinal muscle spasm or tenderness. * Moves all 4 extremities well, with full ROM and good CSM. * DIAZ x4, CN II-XII grossly intact. * No focal neurologic deficits. PSYCHIATRY * Normal mood and affect, cooperative, no SI or HI or hallucinations. Objective Labs 09/15/24 10:30 09/15/24 04:50 Labs: Laboratory Results - last 24 hr 09/15/24 09/15/24 04:50 10:30 WBC 5.8 RBC 3.98 L Hgb 7.6 L 8.5 L Hct 26.1 L 28.9 L MCV 66 L MCH 19.1 L MCHC 29.1 L RDW Std Deviation 59.1 H Plt Count 285 Neut % (Auto) 55 Lymph % (Auto) 30 [place] % (Auto) 12 Eos % (Auto) 2 Baso % (Auto) 1 Neut # (Auto) 3.2 Lymph # (Auto) 1.8 [place] # (Auto) 0.7 Eos # (Auto) 0.1 Baso # (Auto) 0.1 Immature Gran # (Auto) 0.01 H Absolute Nucleated RBC 0.00 Immature Gran % 0 Nucleated RBC % 0 Sodium 139 Potassium 4.0 Chloride 108 H Carbon Dioxide 24.3 Anion Gap 7 BUN 6 L Creatinine 0.8 Estim Creat Clear Calc 87.4 eGFR > 60 BUN/Creatinine Ratio 8 L Glucose 93 Calculated Osmolality 275 Calcium 8.1 L Corrected Calcium 8.5 Phosphorus 4.2 Magnesium 1.9 Total Bilirubin 0.6 AST 14 ALT 15 Alkaline Phosphatase 71 Total Protein 5.8 Albumin 3.5 Globulin 2.3 Albumin/Globulin Ratio 1.5 Quality Measures Quality Measures none Advance care planning discussed with:: other Assessment & Plan Assessment Current Active Medications: Generic Name Dose Route Start Last Admin Trade Name Freq PRN Reason Stop Dose Admin Acetaminophen 650 mg 09/12/24 12:21 09/14/24 13:52 Acetaminophen 325 Mg Tablet PO 10/12/24 12:20 650 mg Q6H PRN Administration Fever >100.4 Alprazolam 1 mg 09/12/24 19:34 09/14/24 20:48 Alprazolam 0.25 Mg Tablet PO 09/17/24 19:33 1 mg BID PRN Administration Anxiety Artificial Tears 1 drop 09/13/24 10:55 Artificial Tears 225 Drop/15 Ml Btl BOTH EYES BID PRN dry eye(s) Atorvastatin Calcium 40 mg 09/12/24 19:45 09/15/24 08:44 Atorvastatin Calcium 20 Mg Tablet PO 10/12/24 19:44 40 mg QDAY KAREN Administration Ezetimibe 10 mg 09/12/24 19:45 09/15/24 08:44 Ezetimibe 10 Mg Tablet PO 10/12/24 19:44 10 mg QDAY KAREN Administration Folic Acid 1 mg 09/13/24 09:00 09/15/24 08:44 Folic Acid 1 Mg Tablet PO 10/13/24 08:59 1 mg QDAY KAREN Administration Gabapentin 100 mg 09/13/24 09:00 09/15/24 08:44 Gabapentin 100 Mg Capsule PO 10/13/24 08:59 100 mg QDAY KAREN Administration Sodium Chloride 1,000 mls @ 125 mls/hr 09/14/24 16:15 09/15/24 08:45 Ns IV 10/14/24 16:14 125 mls/hr .Q8H KAREN Administration Nitroglycerin 0.4 mg 09/12/24 18:45 Nitroglycerin 0.4 Mg Subl Btl #25 SL 10/12/24 18:44 Q5M PRN CHEST PAIN Ondansetron HCl 4 mg 09/12/24 12:21 09/12/24 19:31 Ondansetron Inj 2 Mg/Ml Inj 2 Ml IVP 10/12/24 12:20 4 mg Q6H PRN Administration NAUSEA OR VOMITING Protocol Pantoprazole Sodium 40 mg 09/13/24 21:00 09/15/24 08:44 Pantoprazole 40 Mg Tablet PO 10/13/24 20:59 40 mg BID KAREN Administration Protocol Paroxetine HCl 20 mg 09/12/24 18:45 09/15/24 08:44 Paroxetine Hcl 10 Mg Tablet PO 10/12/24 18:44 20 mg QDAY KAREN Administration Polyethylene Glycol/Electrolytes 4,000 ml 09/13/24 17:15 Na Hurst/Nahco3/Ghulam/Peg (Golytely) 4,000 Ml Btl PO X1 PRN IF PATIENT IS NOT CLEAN PLEASE START SECOND GALLON Plan This is a 68 year-old male with PMHx of diverticular disease, HTN, T2DM, HLD, CAD, s/p PCI x 2, angina pectoris, and quadruple vessel bypass presenting with dark stool. Appreciate recommendations from GI team. Acute, symptomatic GI bleed anemia (stable) Hx diverticular disease Presenting with 2 days of dark stool with symptoms of dizziness and lightheadedness. History of diverticular disease with previous admission for anemia in 2019; Colonoscopy done showed moderate diverticulosis and nonbleeding hemorrhoids. Admission Hgb 5.6, HCT 19.7. Coag panel WNL. Initiated 2 PRBC transfusion. GI consulted, n.p.o. for procedure later today. No history of cirrhosis or alcohol use, less likely variceal bleed, no indication for OCTREOTIDE at this time. CT abdominal pelvis showed gastritis, no abnormal contrast in the gastrointestinal tract, no liver pathology. Hgb 8.1 and stable after 2 units PRBCs. 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 Colonoscopy indicated hemorrhoids and diverticulosis of sigmoid and descending colon ? Holding home ASPIRIN in settings of GI bleed ? Continue PROTONIX BID ? Transfuse Hgb less than 8 ? Iron panel after discharge ? Pending further recommendations from GI ? Daily labs Angina pectoralis (chronic) Coronary artery disease S/p PCI stent x 2 S/p quadruple vessel bypass CHF unknown EF Endorsing increased frequency of chest pain episode as described in HPI. Well- controlled with NITROGLYCERIN PRN. Admission EKG shows sinus rhythm without acute ST changes. Troponin negative. Repeat troponin negative. Remains asymptomatic. He had stress test [address] Jose Harrell, he is on LASIX 20 mg every 3rd day. No signs or symptoms of CHF exacerbation or volume overload, will resume LASIX if need be. ? Holding home ASPIRIN for recent above ? Continue NITROGLYCERIN PRN ? Resume home LASIX on discharge or IP if indicated HTN HLD Currently normotensive. ? Continue home ATORVASTATIN 40 mg daily ? Continue home EZETIMIBE 10 mg daily ? Pending lipid panel Generalized anxiety disorder ? Continue home PAROXETINE 20 mg q. day ? Continue home ALPRAOLAM 1mg BID PRN Health maintenance Diet: NPO GI prophylaxis: PROTONIX DVT prophylaxis: Contraindicated in setting of bleed Antibiotics: Not indicated CODE STATUS: Full code Disposition: Admitted for acute GI blood loss anemia, anticipating discharge within 24 hours This patient care was discussed with my attending Dr. Wyatt Francisco MD PGY-2 Disclaimer: Minor errors in glass belt sander may be present since this note was dictated by speech recognition software.
--- NOTE | 2024-09-15 16:54 | PD.IMPROG ---
Documentation for date of: 09/15/24 Subjective Subjective Interval history: Hemoglobin hematocrit 8.5 and 28.9 Exam Vital Signs Temp Pulse Resp BP Pulse Ox O2 Del Method O2 Flow Rate 97.6 F 18 L 18 115/70 98 Room Air 1 09/15/24 16:00 09/15/24 16:00 09/15/24 16:00 09/15/24 16:00 09/15/24 16:00 09/15/24 11:48 09/15/24 04:00 Objective Labs 09/15/24 10:30 09/15/24 04:50 Labs: Laboratory Results - last 24 hr 09/15/24 09/15/24 04:50 10:30 WBC 5.8 RBC 3.98 L Hgb 7.6 L 8.5 L Hct 26.1 L 28.9 L MCV 66 L MCH 19.1 L MCHC 29.1 L RDW Std Deviation 59.1 H Plt Count 285 Neut % (Auto) 55 Lymph % (Auto) 30 [place] % (Auto) 12 Eos % (Auto) 2 Baso % (Auto) 1 Neut # (Auto) 3.2 Lymph # (Auto) 1.8 [place] # (Auto) 0.7 Eos # (Auto) 0.1 Baso # (Auto) 0.1 Immature Gran # (Auto) 0.01 H Absolute Nucleated RBC 0.00 Immature Gran % 0 Nucleated RBC % 0 Sodium 139 Potassium 4.0 Chloride 108 H Carbon Dioxide 24.3 Anion Gap 7 BUN 6 L Creatinine 0.8 Estim Creat Clear Calc 87.4 eGFR > 60 BUN/Creatinine Ratio 8 L Glucose 93 Calculated Osmolality 275 Calcium 8.1 L Corrected Calcium 8.5 Phosphorus 4.2 Magnesium 1.9 Total Bilirubin 0.6 AST 14 ALT 15 Alkaline Phosphatase 71 Total Protein 5.8 Albumin 3.5 Globulin 2.3 Albumin/Globulin Ratio 1.5 Impressions Impression: Internal hemorrhoids diverticulosis sigmoid colon continue current Treatment Assessment & Plan A&P Narrative # Acute posthemorrhagic anemia # Melena Plan Agree with blood transfusion IV Protonix Serial CBC Consent obtained for fiberoptic esophagogastroduodenoscopy with possible biopsy possible therapeutic intervention under intravenous moderate If EGD is negative we will consider doing a fiberoptic colonoscopy prior to discharge after GoLytely prep Other medical problems include Coronary artery disease status post PCI Status post CABG Essential hypertension Diabetes mellitus type 2 Hyperlipidemia Thank you very much for the opportunity to participate in the care of this patient Time Spent With Patient Time: Total time spent is greater than 50% in coordination of care (as documented) at patient's floor/unit and/or counseling patient:
--- NOTE | 2024-09-15 18:16 | PD.ADDPROG ---
Addendum Progress Note Addendum Date of report being addended: 09/15/24 Narrative: Biopsies from the GE junction mass are pending hopefully I will get the report by tomorrow evening I am suspecting I am suspecting a malignant mass at the GE junction
[2024-09-15] MEDS: ALPRazoLAM 0.25 MG TABLET 1 MG PO (21:16)
[2024-09-16] VITALS: BP 114/76; PULSE 62; PULSE 68; RESP 17; TEMP 37.1; O2SAT 96
[2024-09-16] MEDS: SODIUM CHLORIDE 0.9% 1000 ML 1,000 ML 125 ML IV (01:46)
[2024-09-16 04:00] VITALS: BP 127/81; PULSE 57; PULSE 67; RESP 16; TEMP 36.2
[2024-09-16 06:10] LABS: Basophils # (Auto) 0.1 Thou/mm3 (0.0-0.2); Basophils % (Auto) 1 % (0-2.5); Eosinophils # (Auto) 0.1 Thou/mm3 (0.0-0.5); Eosinophils % (Auto) 2 % (0-10); Hematocrit 29.3 % (41.0-53.0); Immature Granulocytes % (Auto) 1 % (0-0); Immature Granulocytes Auto 0.07 Thou/mm3 (0.00-0.00); Lymphocytes # (Auto) 1.8 Thou/mm3 (1.0-4.8); Lymphocytes % (Auto) 25 % (10-50); Mean Corpuscular HGB Conc 29.7 g/dl (31.0-37.0); Mean Corpuscular Hemoglobin 19.3 pg (25.0-35.0); Mean Corpuscular Volume 65 fL (80-100); Monocytes # (Auto) 0.7 Thou/mm3 (0.0-0.8); Monocytes % (Auto) 10 % (0-12); Neutrophils # (Auto) 4.6 Thou/mm3 (1.8-7.7); Neutrophils % (Auto) 62 % (37-80); Nucleated Red Blood Cell % 0 /100 WBC (0); Platelet Count 267 Thou/mm3 (140-440); RDW Standard Deviation 58.2 fL (35.1-43.9); Red Blood Count 4.51 Miln/mm3 (4.50-5.90); White Blood Count 7.4 Thou/mm3 (3.8-10.6)
[2024-09-16 06:12] LABS: Hemoglobin 8.7 g/dL (13.5-16.0)
[2024-09-16 06:35] LABS: Alanine Aminotransferase 15 U/L (10-49); Albumin, Serum 4.1 gm/dL (3.4-4.8); Albumin/Globulin Ratio 1.9 (1.2-2.2); Alkaline Phosphatase 77 U/L (46-116); Anion Gap 7 (7-16); Aspartate Amino Transferase 15 U/L (0-34); BUN/Creatinine Ratio 11 Ratio (12-20); Bilirubin,Total 0.7 mg/dL (0.3-1.2); Blood Urea Nitrogen 8 mg/dL (9-23); Calcium 8.8 mg/dL (8.3-10.6); Calcium (Corrected) 8.8 mg/dL (8.5-10.1); Carbon Dioxide 25.6 mMol/L (20.0-31.0); Chloride 104 mMol/L (98-107); Creatinine (Component) 0.7 mg/dL (0.6-1.3); Estimated Creatinine Clearance 99.5 mL/min (>60); Globulin 2.2 gm/dL (2.3-3.5); Glucose 125 mg/dL (74-106); Magnesium 1.8 mg/dL (1.6-2.6); Osmolality,Calculated 273 (275-295); Potassium 3.7 mMol/L (3.4-5.1); Sodium 137 mMol/L (136-145); Total Protein 6.3 gm/dL (5.7-8.2); eGFR > 60 See Note
[2024-09-16 08:00] VITALS: BP 144/90; PULSE 73; RESP 18; TEMP 36.7; O2SAT 98
[2024-09-16] MEDS: PARoxetine HCL 10 MG TABLET 20 MG PO (08:36)
[2024-09-16] MEDS: GABAPENTIN 100 MG CAPSULE PO (08:36)
[2024-09-16] MEDS: FOLIC ACID 1 MG TABLET PO (08:36)
[2024-09-16] MEDS: PANTOPRAZOLE 40 MG TABLET PO (08:36)
[2024-09-16] MEDS: ATORVASTATIN CALCIUM 20 MG TABLET 40 MG PO (08:36)
--- NOTE | 2024-09-16 11:05 | ESDS_ITS ---
Planned Discharge Date 09/16/24 DS: Providers Provider Date of admission: 09/12/24 12:21 Primary care physician: Suhas Nelson MD Admitting Provider: Cecilia Adams DO Attending Provider on Admission: Malika Schneider MD Consults: 09/12/24 11:30 Consult to Gastroenterology Stat Comment: GI bleed, severe anemia Consulting Provider: Nina Bashir 09/12/24 18:30 Referral [place] Routine Comment: Referral Physical Therapy Routine Comment: Physician Instructions: Referral Respiratory Therapy Routine Comment: Attending Provider on DC: Malika Schneider MD Discharging Provider: Malika Schneider MD DS: Diagnosis Problem List Completed Was Problem List Reviewed/Reconciled?: Yes Hospital Course Hospital Course Hospital course: A 68-year-old male with a history of diverticular disease, coronary artery disease (status post PCI ?2 and CABG), type 2 diabetes, hypertension, hyperlipidemia, and chronic angina presented with two days of melena, dizziness, and lightheadedness, found to have a symptomatic GI bleed with hemoglobin of 5.6 on admission. He received two units of PRBCs, resulting in hemoglobin stabilization at 8.1. Endoscopy revealed a distal esophageal mass, which was biopsied, and colonoscopy showed diverticulosis and hemorrhoids. He remains hemodynamically stable on protonix BID, with further GI recommendations pending. The patient also reported increased episodes of angina, though he remained stable with negative troponins and a normal EKG. He was continued on nitroglycerin PRN, and home diuretics (Lasix every third day) were held unless needed. His hypertension and hyperlipidemia were managed with atorvastatin and ezetimibe, and his anxiety disorder was managed with paroxetine and alprazolam as needed. Discharge planning includes monitoring hemoglobin, holding aspirin, and following up on GI biopsy results and iron panel. PATIENT INSTRUCTIONS: * Follow-up with primary doctor within 1-2 weeks of discharge. * You have an appointment with [facility], Dr. Bashir this 09/19/2024 at 3:15PM, it's important that you follow-up regarding esophageal biopsy results. Please refer to the address below. You may need a referral to oncology based on biopsy results. Please discuss with Dr. Mckay DAVIS [phone] . * Continue taking PROTONIX 40 mg twice daily until you see GI. Dr. Bashir. * Return to Emergency Room if symptoms persist, worsen, or new symptoms develop. * Continue taking medications as prescribed below. ADMISSION DIAGNOSES: Acute, symptomatic GI bleed anemia (stable) Esophageal mass Hx diverticular disease Angina pectoralis (chronic) Coronary artery disease S/p PCI stent x 2 S/p quadruple vessel bypass CHF unknown EF HTN HLD Generalized anxiety disorder Case was discussed with attending physician and senior resident. Uriel Cooley DO PGYII Time Spent with Patient Time attestation: Total time spent providing and/or coordinating discharge services: Time spent: Greater than 30 minutes Exam Vital Signs Temp Pulse Resp BP Pulse Ox O2 Del Method O2 Flow Rate 98.0 F 73 18 144/90 H 98 Room Air 1 09/16/24 08:00 09/16/24 08:00 09/16/24 08:00 09/16/24 08:00 09/16/24 08:00 09/16/24 00:00 09/15/24 04:00 Narrative Exam GENERAL * Normal appearing male, NAD, on room air satting well. HEENT * NCAT.?TRANG. Oral mucosa is moist. Patent Nares NECK * Supple, nontender, no JVD. CHEST * RRR, no m/g/r * CTAB, no w/r/r, symmetrical expansion. ABDOMEN * Soft, flat, nontender on palpation. * No guarding/rebound tenderness/masses. * Bowel sounds presents EXTREMITIES * No edema/cyanosis.? SKIN * Warm and dry, no jaundice/rashes. NEUROMUSCULAR * No lumbar or midline, no CVA, no paraspinal muscle spasm or tenderness. * Moves all 4 extremities well, with full ROM and good CSM. * DIAZ x4, CN II-XII grossly intact. * No focal neurologic deficits. PSYCHIATRY * Normal mood and affect, cooperative, no SI or HI or hallucinations. Discharge Plan Plan Patient Disposition: HOME (Self Care) Patient condition on transfer: Stable Care Plan Goals: * Follow-up with primary doctor within 1-2 weeks of discharge. * You have an appointment with GI, Dr. Bashir this 09/19/2024 at 3:15PM, it's important that you follow-up regarding esophageal biopsy results. Please refer to the address below. You may need a referral to oncology based on biopsy results. Please discuss with GI, Dr. Benson [phone] . * Continue taking PROTONIX 40 mg twice daily until you see GI. Dr. Bashir. * Return to Emergency Room if symptoms persist, worsen, or new symptoms develop. * Continue taking medications as prescribed below. Prescriptions/Referrals Prescriptions/Med Rec: New pantoprazole [Protonix] 40 mg tablet,delayed release (DR/EC) 40 mg PO BID Qty: 60 0RF Continued paroxetine HCl 20 mg Tablet 20 mg PO QDAY ezetimibe 10 mg Tablet 10 mg PO QDAY atorvastatin 80 mg Tablet 40 mg PO QDAY aspirin 81 mg Tablet,Delayed Release (Dr/Ec) 81 mg PO QDAY folic acid 1 mg Tablet 1 mg PO QDAY pantoprazole 40 mg Tablet,Delayed Release (Dr/Ec) 40 mg PO QDAY alprazolam 1 mg Tablet 1 mg PO BID PRN (Reason: Anxiety) hydrocodone-acetaminophen 10-325 mg Tablet 1 tab PO BID PRN (Reason: Pain) gabapentin 100 mg capsule 100 mg PO PRN Patient Comments: TAKE 1 CAPSULE BY MOUTH EVERY DAY furosemide 20 mg tablet 20 mg PO .q3day Patient Comments: TAKE 1 TABLET BY MOUTH EVERY DAY potassium chloride 10 mEq tablet extended release 20 meq PO .q3da Patient Comments: TAKE 1 TABLET BY MOUTH TWICE A DAY amlodipine 5 mg tablet 5 mg PO DAILY Patient Comments: TAKE 1 TABLET BY MOUTH EVERY DAY Januvia 25 mg tablet 25 mg PO QDAY nitroglycerin 400 mcg/spray spray,non-aerosol 400 mcg [id number] Patient Comments: PLEASE SEE ATTACHED FOR DETAILED DIRECTIONS Systane Complete 0.6 % drops 1 drp ophthalmic (eye) BID PRN (Reason: dry eye(s)) Referrals: Suhas Nelson MD [Primary Care Provider] - Geoffrey Cordoba MD [Physician] - Nina Bashir MD [Physician] - 09/19/24 3:15 pm (Esophageal tumor biopsy) Patient/Caregiver Discharge Instructions Education Materials: Bleeding Gastrointestinal Print Language: Algerian Stand Alone Forms: [place] Award Info., Patient Portal Info Letter Discharge Order Discharge Orders: Discharge (Routine); Ordered 09/16/24 Ordered By: Uriel Cooley Quality Discharge Quality Measures VTE prophylaxis
[2024-09-16] MEDS: ACETAMINOPHEN 325 MG TABLET 650 MG PO (11:17)
--- NOTE | 2024-09-16 11:47 | PC.NURSE ---
Per MD mckeon verbal orders hold on discharge for this patient until the next rounding done by attending md and additional residents.
[2024-09-16 12:00] VITALS: BP 135/89; PULSE 76; RESP 18; TEMP 36.4; O2SAT 95
--- NOTE | 2024-09-16 12:07 | ESPR_ITS ---
Documentation for date of: 09/16/24 Subjective Subjective Interval history: Biopsy report pending Case discussed with internal medicine team. Okay to discharge patient home I will see the patient in follow-up on for the biopsy report and further evaluation Exam Vital Signs Temp Pulse Resp BP Pulse Ox O2 Del Method O2 Flow Rate 98.0 F 73 18 144/90 H 98 Room Air 1 09/16/24 08:00 09/16/24 08:00 09/16/24 08:00 09/16/24 08:00 09/16/24 08:00 09/16/24 00:00 09/15/24 04:00 Objective Labs 09/16/24 05:25 09/16/24 05:25 Labs: Laboratory Results - last 24 hr 09/16/24 05:25 WBC 7.4 RBC 4.51 Hgb 8.7 L Hct 29.3 L MCV 65 L MCH 19.3 L MCHC 29.7 L RDW Std Deviation 58.2 H Plt Count 267 Neut % (Auto) 62 Lymph % (Auto) 25 [place] % (Auto) 10 Eos % (Auto) 2 Baso % (Auto) 1 Neut # (Auto) 4.6 Lymph # (Auto) 1.8 [place] # (Auto) 0.7 Eos # (Auto) 0.1 Baso # (Auto) 0.1 Immature Gran # (Auto) 0.07 H Absolute Nucleated RBC 0.00 Immature Gran % 1 H Nucleated RBC % 0 Sodium 137 Potassium 3.7 Chloride 104 Carbon Dioxide 25.6 Anion Gap 7 BUN 8 L Creatinine 0.7 Estim Creat Clear Calc 99.5 eGFR > 60 BUN/Creatinine Ratio 11 L Glucose 125 H Calculated Osmolality 273 L Calcium 8.8 Corrected Calcium 8.8 Phosphorus 4.0 Magnesium 1.8 Total Bilirubin 0.7 AST 15 ALT 15 Alkaline Phosphatase 77 Total Protein 6.3 Albumin 4.1 D Globulin 2.2 L Albumin/Globulin Ratio 1.9 Impressions Impression: Possible GE junction malignant mass biopsies pending Outpatient follow-up Okay to discharge patient home Assessment & Plan A&P Narrative # Acute posthemorrhagic anemia # Melena Plan Agree with blood transfusion IV Protonix Serial CBC Consent obtained for fiberoptic esophagogastroduodenoscopy with possible biopsy possible therapeutic intervention under intravenous moderate If EGD is negative we will consider doing a fiberoptic colonoscopy prior to discharge after GoLytely prep Other medical problems include Coronary artery disease status post PCI Status post CABG Essential hypertension Diabetes mellitus type 2 Hyperlipidemia Thank you very much for the opportunity to participate in the care of this patient Time Spent With Patient Time: Total time spent is greater than 50% in coordination of care (as documented) at patient's floor/unit and/or counseling patient:
--- NOTE | 2024-09-16 12:19 | PC.NURSE ---
Per MD shetab continue with discharge. Rounding has been completed and education provided to pt at bedside my MD.
--- NOTE | 2024-09-16 12:30 | PC.NURSE ---
Patient is ready to discharge on my part iv has beed dc and dc papers signed. Per Pt the earliest son can get off work and worm picker is 1400. Therefore plan to dc pt about 1400 when ride arrives.
[2024-09-16 12:32] LABS: Iron 7 mcg/dL (65-175); Percent Iron Saturation 1 % (20-55); Total Iron Binding Capacity 431 mcg/dL (250-425); Unsaturated Iron Binding 424 (225-295)
--- NOTE | 2024-09-16 15:28 | PC.SS ---
Patient to d/c home today
== END 2024-09-16 13:30 | disposition home or self-care (01) | DRG 374 ==
LOC: SERX 11:33 → SERHOLD 13:03 → S2NX 16:48 → S3NX 09-13 16:41
PROVIDERS: Internal Medicine; Specialist; Student in an Organized Health Care Education/Training Program; Admitting Provider Internal Medicine; Emergency Provider Emergency Medicine; PCP Internal Medicine Hospice and Palliative Medicine; Visit Provider Student in an Organized Health Care Education/Training Program
PROC: 0DB48ZX Excision of Esophagogastric Junction, Via Natural or Artificial Opening Endoscopic, Diagnostic (ICD-10-PCS; CPT 43239; principal; 2024-09-13 16:30)
PROC: 0DJD8ZZ Inspection of Lower Intestinal Tract, Via Natural or Artificial Opening Endoscopic (ICD-10-PCS; CPT 45378; principal; 2024-09-14 15:00)
DX: D49.0 Neoplasm of unspecified behavior of digestive system (principal); K57.33 Diverticulitis of large intestine without perforation or abscess with bleeding; D62 Acute posthemorrhagic anemia; K64.8 Other hemorrhoids; K57.30 Diverticulosis of large intestine without perforation or abscess without bleeding; I25.119 Atherosclerotic heart disease of native coronary artery with unspecified angina pectoris; Z98.61 Coronary angioplasty status; Z95.1 Presence of aortocoronary bypass graft; I50.9 Heart failure, unspecified; I11.0 Hypertensive heart disease with heart failure; K22.9 Disease of esophagus, unspecified; E11.9 Type 2 diabetes mellitus without complications; E78.5 Hyperlipidemia, unspecified; E86.0 Dehydration; K29.70 Gastritis, unspecified, without bleeding; F41.1 Generalized anxiety disorder; K59.00 Constipation, unspecified; Z79.82 Long term (current) use of aspirin; Z79.899 Other long term (current) drug therapy; Z87.891 Personal history of nicotine dependence; Z88.8 Allergy status to other drugs, medicaments and biological substances
CPT/HCPCS: 36415; 36430; 74177; 80053; 80061; 81001; 82140; 83540; 83550; 83690; 83735; 84100; 84484; 85014; 85018; 85025; 85610; 85730; 86850; 86900; 86901; 86923; 93005; 93225; 96361; 96374; 96375; 97161; 99291; A4649; J0131; J1200; J2250; J2405; J2470; J3010; J3490; J7030; P9016; Q9967; A9270

== ENCOUNTER 2024-10-15 13:49 | Outpatient (RCR) | payer MEDICARE, MEDICAID, SELFPAY ==
--- NOTE | 2024-10-15 15:30 | CTCCONSULT_ITS ---
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 Attending physician. Suhas Nelson MD Referring physician. Nina Bashir MD Patient is a 68-year-old gentleman experienced weakness with significant anemia hemoglobin 5.6 on 09/12/2024 along with passing dark stools. Underwent esophagogastroduodenoscopy performed by Dr. Bashir 09/13/2024. Findings revealed small ulcerating mass with no active bleeding GE junction 45 cm from the incisors. Mass was nonobstructing and partially circumferential. Epicenter of tumor was at the GE junction, with Dr. Bashir feeling that likely esophageal tumor origin found at GE junction. Biopsy revealed poorly differentiated carcinoma, with no loss of expression in all 4 mismatch repair proteins. According to comment, by Dr. 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 Colonoscopy 09/14/2024 hemorrhoids and moderate diverticulosis with no specimens collected. CT scan abdomen pelvis 09/12/2024 revealed gastritis pattern with no abnormal accumulation of contrast in the GI tract. Patient has already seen Dr. Virk thoracic surgeon [facility] who talk about possible surgery preceded by PET scan. Past medical history: Hypertension type 2 diabetes coronary artery disease PCI x 2 quadruple vessel bypass. History of diverticulosis. Meds. Januvia amlodipine furosemide Allergies latex which causes rash carvedilol steroids strawberries Family history. Denies cancer in family Social History: Retired from working the city and repairing motorcycles. Denies smoking drinking Review of Systems: Passed dark schools but denies obstructive symptoms or weight loss. Physical Exam: General: Adequate nourished appearing gentleman in no acute distress HEENT: Atraumatic normocephalic extraocular muscle intact no oral lesions no cervical or supraclavicular adenopathy CV: Chest clear to auscultation heart regular rate and rhythm ABD: Soft no organomegaly or tenderness EXT: No signs clubbing or edema Assessment: #1. 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 Bashir. No loss of expression in all 4 mismatch repair proteins. Pathologist states that this may possibly be of gastric origin. #2. Thoracic surgeon Dr. Sully HERNANDEZ has already seen patient. Discussed surgery. Recommended PET scan according to patient. #3. PET scan for staging. #4. Dr. Gloria medical oncologist to see patient, #5. Thank you very much for allowing us to evaluate and manage this patient. Cc: Nina Nelson MD Electronically signed by: Geoffrey Cordoba MD, DABR 10/15/2024 3:28 PM
== END 2024-10-17 23:59 | disposition home or self-care (01) ==
LOC: SCTC 13:49
PROVIDERS: PCP Internal Medicine Hospice and Palliative Medicine; Referring Provider Specialist; Visit Provider Radiology Therapeutic Radiology
DX: C16.0 Malignant neoplasm of cardia (principal)
CPT/HCPCS: 99213; G0463

== ENCOUNTER → 2024-10-31 | Outpatient (CLI) | payer MEDICARE, MEDICAID, SELFPAY ==
[2024-10-31 10:43] LABS: Basophils # (Auto) 0.1 Thou/mm3 (0.0-0.2); Basophils % (Auto) 1 % (0-2.5); Eosinophils # (Auto) 0.2 Thou/mm3 (0.0-0.5); Eosinophils % (Auto) 3 % (0-10); Hematocrit 30.6 % (41.0-53.0); Immature Granulocytes Auto 0.00 Thou/mm3 (0.00-0.00); Lymphocytes # (Auto) 1.5 Thou/mm3 (1.0-4.8); Lymphocytes % (Auto) 28 % (10-50); Mean Corpuscular HGB Conc 27.1 g/dl (31.0-37.0); Mean Corpuscular Hemoglobin 17.3 pg (25.0-35.0); Mean Corpuscular Volume 64 fL (80-100); Monocytes # (Auto) 0.5 Thou/mm3 (0.0-0.8); Monocytes % (Auto) 9 % (0-12); Neutrophils # (Auto) 3.1 Thou/mm3 (1.8-7.7); Neutrophils % (Auto) 58 % (37-80); Nucleated Red Blood Cell # 0.00 Thou/mm3 (0.00-0.00); Nucleated Red Blood Cell % 0 /100 WBC (0); Platelet Count 341 Thou/mm3 (140-440); RDW Standard Deviation 51.9 fL (35.1-43.9); Red Blood Count 4.80 Miln/mm3 (4.50-5.90); White Blood Count 5.3 Thou/mm3 (3.8-10.6)
[2024-10-31 11:01] LABS: Alanine Aminotransferase 9 U/L (10-49); Albumin, Serum 4.5 gm/dL (3.4-4.8); Albumin/Globulin Ratio 1.7 (1.2-2.2); Alkaline Phosphatase 69 U/L (46-116); Anion Gap 9 (7-16); Aspartate Amino Transferase 17 U/L (0-34); BUN/Creatinine Ratio 14 Ratio (12-20); Bilirubin,Total 0.4 mg/dL (0.3-1.2); Blood Urea Nitrogen 11 mg/dL (9-23); Calcium 9.5 mg/dL (8.3-10.6); Calcium (Corrected) 9.5 mg/dL (8.5-10.1); Carbon Dioxide 27.3 mMol/L (20.0-31.0); Chloride 105 mMol/L (98-107); Creatinine (Component) 0.8 mg/dL (0.6-1.3); Globulin 2.7 gm/dL (2.3-3.5); Glucose 161 mg/dL (74-106); Osmolality,Calculated 283 (275-295); Potassium 4.6 mMol/L (3.4-5.1); Sodium 141 mMol/L (136-145); Thyroid Stimulating Hormone 1.56 uIU/mL (0.55-4.78); Total Protein 7.2 gm/dL (5.7-8.2); eGFR > 60 See Note
[2024-10-31 11:04] LABS: Hemoglobin 8.3 g/dL (13.5-16.0)
[2024-10-31 12:14] LABS: Vitamin D 25 Hydroxy Total 41.8 ng/mL (7.3-40.2)
[2024-10-31 12:16] LABS: Prostate Specific Antigen 2.16 ng/mL (0-4.00)
[2024-10-31 14:23] LABS: Cholesterol 104 mg/dL (132-200); Triglycerides 59 mg/dL (30-150)
[2024-10-31 14:55] LABS: Glucose Estimated Average 151 mg/dL (80-131); Hemoglobin A1C 6.9 % Hgb (4.8-6.0)
[2024-10-31 14:56] LABS: Cardiac Risk Estimate 2.6 RATIO (4.0-6.7); HDL Cholesterol 40 mg/dL (40-60); LDL Cholesterol,Calculated 52 mg/dL (0-130)
== END | disposition home or self-care (01) ==
LOC: COPL 09:34
PROVIDERS: PCP Internal Medicine Hospice and Palliative Medicine; Referring Provider Nurse Practitioner Family; Visit Provider Nurse Practitioner Family
DX: E78.5 Hyperlipidemia, unspecified (principal); E11.9 Type 2 diabetes mellitus without complications; Z12.5 Encounter for screening for malignant neoplasm of prostate; E66.3 Overweight; R53.83 Other fatigue
CPT/HCPCS: 36415; 80053; 80061; 82306; 83036; 84153; 84443; 85025

== ENCOUNTER → 2024-11-26 | Outpatient (CLI) | payer MEDICARE, MEDICAID, SELFPAY ==
[2024-11-26 11:33] LABS: Basophils # (Auto) 0.1 Thou/mm3 (0.0-0.2); Basophils % (Auto) 1 % (0-2.5); Eosinophils # (Auto) 0.0 Thou/mm3 (0.0-0.5); Eosinophils % (Auto) 1 % (0-10); Hematocrit 32.5 % (41.0-53.0); Immature Granulocytes Auto 0.01 Thou/mm3 (0.00-0.00); Immature Reticulocyte Fraction 25.9 % (2.3-13.4); Lymphocytes # (Auto) 1.2 Thou/mm3 (1.0-4.8); Lymphocytes % (Auto) 23 % (10-50); Mean Corpuscular HGB Conc 26.8 g/dl (31.0-37.0); Mean Corpuscular Hemoglobin 16.9 pg (25.0-35.0); Mean Corpuscular Volume 63 fL (80-100); Monocytes # (Auto) 0.4 Thou/mm3 (0.0-0.8); Monocytes % (Auto) 8 % (0-12); Neutrophils # (Auto) 3.5 Thou/mm3 (1.8-7.7); Neutrophils % (Auto) 68 % (37-80); Nucleated Red Blood Cell # 0.00 Thou/mm3 (0.00-0.00); Nucleated Red Blood Cell % 0 /100 WBC (0); Platelet Count 330 Thou/mm3 (140-440); RDW Standard Deviation 50.0 fL (35.1-43.9); Red Blood Count 5.16 Miln/mm3 (4.50-5.90); Reticulocyte % (Auto) 0.8 % (0.5-1.5); Reticulocyte Absolute Auto 38.7 Biln/L (25.0-75.0); Reticulocyte Hgb Content 15.9 pg (28.0-35.0); White Blood Count 5.2 Thou/mm3 (3.8-10.6)
[2024-11-26 11:35] LABS: Hemoglobin 8.7 g/dL (13.5-16.0)
[2024-11-26 11:50] LABS: Folate 15.24 ng/mL (>5.38); Vitamin B12 608 pg/mL (211-911)
[2024-11-26 11:53] LABS: Alanine Aminotransferase 13 U/L (10-49); Albumin, Serum 4.4 gm/dL (3.4-4.8); Albumin/Globulin Ratio 1.5 (1.2-2.2); Alkaline Phosphatase 77 U/L (46-116); Anion Gap 13 (7-16); Aspartate Amino Transferase 16 U/L (0-34); BUN/Creatinine Ratio 18 Ratio (12-20); Bilirubin,Total 0.5 mg/dL (0.3-1.2); Blood Urea Nitrogen 14 mg/dL (9-23); Calcium 9.2 mg/dL (8.3-10.6); Calcium (Corrected) 9.2 mg/dL (8.5-10.1); Carbon Dioxide 25.5 mMol/L (20.0-31.0); Chloride 103 mMol/L (98-107); Creatinine (Component) 0.8 mg/dL (0.6-1.3); Globulin 3.0 gm/dL (2.3-3.5); Glucose 177 mg/dL (74-106); LDH (Lactate Dehydrogenase) 163 U/L (120-246); Osmolality,Calculated 285 (275-295); Potassium 4.1 mMol/L (3.4-5.1); Sodium 141 mMol/L (136-145); Total Protein 7.4 gm/dL (5.7-8.2); eGFR > 60 See Note
[2024-11-26 11:55] LABS: Iron 15 mcg/dL (65-175); Percent Iron Saturation 3 % (20-55); Total Iron Binding Capacity 448 mcg/dL (250-425); Unsaturated Iron Binding 433 (225-295)
[2024-11-26 12:11] LABS: Ferritin 4 ng/mL (10.5-307.3)
[2024-12-02 06:35] LABS: Erythropoietin (EPO)* 105.1 mIU/mL (2.6-18.5); Haptoglobin* 168 mg/dL (43-212)
== END | disposition home or self-care (01) ==
PROVIDERS: Referring Provider Internal Medicine Hematology & Oncology; Visit Provider Internal Medicine Hematology & Oncology
DX: C16.9 Malignant neoplasm of stomach, unspecified (principal); C15.5 Malignant neoplasm of lower third of esophagus
CPT/HCPCS: 36415; 80053; 82607; 82668; 82728; 82746; 83010; 83540; 83550; 83615; 85025; 85046

== ENCOUNTER 2024-12-10 08:14 | Outpatient (CLI) | payer MEDICARE, MEDICAID, SELFPAY ==
[2024-12-06 13:34] VITALS: BMI 27.8
[2024-12-09 11:30] LABS: Basophils # (Auto) 0.0 Thou/mm3 (0.0-0.2); Basophils % (Auto) 1 % (0-2.5); Eosinophils # (Auto) 0.1 Thou/mm3 (0.0-0.5); Eosinophils % (Auto) 1 % (0-10); Hematocrit 30.1 % (41.0-53.0); Immature Granulocytes Auto 0.01 Thou/mm3 (0.00-0.00); Lymphocytes # (Auto) 1.0 Thou/mm3 (1.0-4.8); Lymphocytes % (Auto) 22 % (10-50); Mean Corpuscular HGB Conc 26.9 g/dl (31.0-37.0); Mean Corpuscular Hemoglobin 16.8 pg (25.0-35.0); Mean Corpuscular Volume 62 fL (80-100); Monocytes # (Auto) 0.4 Thou/mm3 (0.0-0.8); Monocytes % (Auto) 8 % (0-12); Neutrophils # (Auto) 3.0 Thou/mm3 (1.8-7.7); Neutrophils % (Auto) 67 % (37-80); Nucleated Red Blood Cell # 0.00 Thou/mm3 (0.00-0.00); Nucleated Red Blood Cell % 0 /100 WBC (0); Platelet Count 345 Thou/mm3 (140-440); RDW Standard Deviation 48.6 fL (35.1-43.9); Red Blood Count 4.82 Miln/mm3 (4.50-5.90); White Blood Count 4.4 Thou/mm3 (3.8-10.6)
[2024-12-09 11:35] LABS: Blood Urea Nitrogen 13 mg/dL (9-23); Creatinine (Component) 0.9 mg/dL (0.6-1.3); Estimated Creatinine Clearance 77.7 mL/min (>60); INR 1.1 (0.9-1.3); Partial Thromboplastin Time 25.8 Seconds (22.0-36.0); Prothrombin Time 11.9 Seconds (9.0-12.2); eGFR > 60 See Note
[2024-12-09 12:00] LABS: Hemoglobin 8.1 g/dL (13.5-16.0)
[2024-12-10] VITALS (11 sets, daily range): BP systolic 114–153; BP diastolic 68–108; PULSE 54–94; RESP 12–25; TEMP 36.8–37.2; O2SAT 93–100
--- NOTE | 2024-12-10 09:00 | XR_ITS ---
Examination: IR venous implantation Port-A-Cath Ultrasound-guided needle placement right internal jugular vein. Fluoroscopy AP Chest, portable single view Exam date and time: December 10, 2024 0904 hours INDICATIONS: Gastric carcinoma diagnosis, requiring long-term intravenous therapy. Informed consent provided Technique: A timeout was completed, verifying correct patient, procedure, site, positioning, and special equipment if applicable The patient was placed in a dependent position appropriate for central line placement based on the vein to be cannulated. The patient's right neck chest was prepped and draped in sterile fashion. Maximum Sterile Barrier Technique used including cap, mask, sterile gown, sterile gloves, and sterile full body drape. If ultrasound technique used: sterile gel and sterile probe covers. Hand Hygiene performed using proper scrub, soap and water, or alcohol-based hand rub. Ultrasound utilized to confirm patency of the right internal jugular vein Utilizing ultrasonographic guidance successful 21-gauge needle puncture into the right internal jugular vein Ultrasound images were recorded and stored. Subcutaneous pocket formed with blunt dissection in the upper chest, 23 cm Port-A-Cath line inserted through a venous sheath into the superior vena cava in proper position under fluoroscopic guidance Fluoroscopy 0.2 minute radiation dose 1.36 milligray The catheter is sutured in place to the skin and a sterile dressing applied. Perfusion to the extremity distal to the point of catheter insertion was checked and found to be adequate The attending radiologist was present for the entire procedure Estimated blood loss4 cc. Findings: Under fluoroscopy, the tip of the Port-A-Cath is in good position in the vena cava. Portable chest x-ray, post line placement, as ordered. Impression: Successful ultrasound-guided needle placement right internal jugular vein. IR venous implantation Port-A-Cath percutaneous. Fluoroscopy 0.2 minute radiation dose 1.36 milligray 1 spot fluoroscopic chest film. AP portable chest completion procedure demonstrates satisfactory position Port-A-Cath tip SVC. May use Port-A-Cath
[2024-12-10] MEDS: HEPARIN SOD LOCK SYR 100 UNIT/ML 500 UNIT INTRACATH (09:30)
[2024-12-10] MEDS: ceFAZolin/D5W 1 GM IVPB 1 GM/50 ML BAG 100 GM INFL (09:30)
[2024-12-10] MEDS: LIDOCAINE 1% W/EPI 1:100K 20 ML VIAL 8 ML INFL (09:30)
[2024-12-10] MEDS: LIDOCAINE INJ PF 1% 30 ML VIAL 7 ML INFL (09:30)
[2024-12-10] MEDS: SODIUM CHLORIDE 0.9% 250 ML 250 ML 20 ML IV (09:30)
[2024-12-10] MEDS: ceFAZolin/D5W 1 GM IVPB 1 GM/50 ML BAG IV (09:30)
[2024-12-10] MEDS: fentaNYL CIT INJ 50 mCg/ML AMP 2ML 125 MCG IVP (10:13)
== END 2024-12-10 12:12 | disposition home or self-care (01) ==
PROVIDERS: Radiology Diagnostic Radiology; Referring Provider Internal Medicine Hematology & Oncology; Visit Provider Internal Medicine Hematology & Oncology
DX: C16.9 Malignant neoplasm of stomach, unspecified (principal); C15.5 Malignant neoplasm of lower third of esophagus; Z01.812 Encounter for preprocedural laboratory examination
CPT/HCPCS: 36558; 36415; 76937; 77001; 82565; 84520; 85025; 85610; 85730; A4649; C1769; C1788; C1894; J0689; J1642; J3010; J3490; J7050

== ENCOUNTER 2024-12-11 13:01 | Outpatient (RCR) | payer MEDICARE, MEDICAID, SELFPAY ==
--- NOTE | 2024-11-26 11:40 | CTCCONSULT_ITS ---
Patient: HOMERO IGNACIO : 1955 MR#: [id number] Page 4 of 7 CONSULTATION NOTE DATE OF CONSULTATION: 11/26/2024 NAME: HOMERO IGNACIO ACCOUNT: : 1955 AGE: 69 REFERRING PHYSICIAN: PRIMARY PHYSICIAN: REASON FOR VISIT: 69-year-old male here to establish care for his esophageal cancer 09/13/2024 ONCOLOGY HISTORY: DIAGNOSIS: Malignant neoplasm of stomach, unspecified [ICD10] C16.9; Malignant neoplasm of lower third of esophagus [ICD10] C15.5 DATE OF DIAGNOSIS: 09/13/2024 PATHOLOGY: STAGE/TNM: TREATMENT HISTORY: Care Plan Name Start Date Cycle Day Intent FLOT neoadjuvant 11/26/2024 1 14 Induction-Primary VENOfer 200mg IV wkly for 10 weeks 11/26/2024 1 70 Induction-Primary HISTORY OF PRESENT ILLNESS: 69-year-old male experienced weakness with significant anemia hemoglobin 5.6 on 09/12/2024 along with passing dark stools. Underwent esophagogastroduodenoscopy performed by Dr. Bashir 09/13/2024. Findings revealed small ulcerating mass with no active bleeding GE junction 45 cm from the incisors. Mass was nonobstructing and partially circumferential. Epicenter of tumor was at the GE junction, with Dr. Bashir feeling that likely esophageal tumor origin found at GE junction. Biopsy revealed poorly differentiated carcinoma, with no loss of expression in all 4 mismatch repair proteins. According to comment, by Dr. Ashton of [facility], IHC staining not conclusive concerning cell of origin but most likely primary gastric adenocarcinoma poorly differentiated. Colonoscopy 09/14/2024 hemorrhoids and moderate diverticulosis with no specimens collected. CT scan abdomen pelvis 09/12/2024 revealed gastritis pattern with no abnormal accumulation of contrast in the GI tract. Patient has already seen Dr. Virk thoracic surgeon [facility] who talk about possible surgery preceded by PET scan. Past medical history: Hypertension type 2 diabetes coronary artery disease PCI x 2 quadruple vessel bypass. History of diverticulosis. Meds. 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 ALLERGIES: prednisolone; LATEX; nitroglycerin REVIEW OF SYSTEMS: A complete 14-point review of systems was performed and is negative except as noted in interval history. PHYSICAL EXAMINATION: VITAL SIGNS: PAIN: 6 - Severe pain ECOG Performance Status: 1 - Symptomatic; ambulatory; restricted in strenuous activity GENERAL APPEARANCE: Appears well, in no apparent distress, appropriately interactive. HEENT: Normocephalic, no temporal wasting, normal conjunctiva, no scleral icterus, normal hearing, lips without lesions, neck normal range of motion. CARDIOVASCULAR: Not assessed. PULMONARY: Normal respiratory effort, no respiratory distress or use of accessory muscles, speaking in full sentences, no tachypnea. EXTREMITIES: No pedal edema or cyanosis. SKIN: Normal skin appearance. NEUROLOGIC: Alert and oriented x4. PSHYCHIATRIC: Appropriate affect, mood normal, behavior normal, intact thought and speech. LABORATORY DATA: I have personally reviewed and interpreted each of the patient?s relevant lab tests, abnormal findings are below: Date 10/31/2024 Time 9:47 AM ??WHITE BLOOD COUNT (Thou/mm3) [C] 5.3 ??RED BLOOD COUNT (Miln/mm3) [C] 4.80 ??HEMOGLOBIN (gm/dl) [C] 8.3 L ??HEMATOCRIT (%) [C] 30.6 L ??PLATELET COUNT (Thou/mm3) [C] 341 ??NEUTROPHILS %, AUTO (%) [C] 58 ??LYMPH %, AUTO (%) [C] 28 ??NEUTROPHILS, AUTO (Thou/mm3) [C] 3.1 ??GLUCOSE,RANDOM (mg/dL) [C] 161 H ??BLOOD UREA NITROGEN (mg/dL) [C] 11 ??CREATININE (mg/dL) [C] 0.80 ??SODIUM (mmol/L) [C] 141 ??POTASSIUM (mmol/L) [C] 4.6 ??CHLORIDE (mmol/L) [C] 105 ??CrCl (CandG) (ml/min) [C] 101.76 ??AST/SGOT (Unit/L) [C] 17 ??ALT/SGPT (Unit/L) [C] 9 L ??ALKALINE PHOSPHATASE (Unit/L) [C] 69 ??BILIRUBIN, TOTAL (mg/dL) [C] 0.4 ??PROTEIN TOTAL (gm/dl) [C] 7.2 ??ALBUMIN, SERUM (gm/dl) [C] 4.5 ??GLOBULIN (gm/dl) [C] 2.7 ??ALBUMIN/GLOBULIN RATIO [C] 1.7 ??CALCIUM, SERUM (mg/dL) [C] 9.5 ??CALCIUM SERUM (CORRECTED) (mg/dL) [C] 9.5 ASSESSMENT/PLAN: #1. Poorly differentiated adenocarcinoma of oesophagus No loss of expression in all 4 mismatch repair proteins. Pathologist states that this may possibly be of gastric origin. Yadira seeing surgeon If no surgery recommended ,then will start chemotherapy Port catheter placement Will start on FLOT neoadjuvant if no surgery #2. Thoracic surgeon Dr. Virk [facility] has already seen patient. Get records. ORDERS: Order # Description [id number] Comprehensive Metabolic Panel - 12 + CBC with Auto Diff + [id number] Follow Up Appointment [id number] Iron Panel + Ferritin + Vitamin B-12 + Folic Acid; Serum + Reticulocyte Count + Lactate Dehydrogenase (LDH) + Assay Of Haptoglobin Quant [id number] Erythropoieten Level [id number] CBC + Comprehensive Metabolic Panel + CEA [id number] Lab Appointment [id number] Follow Up Appointment [id number] CBC + Comprehensive Metabolic Panel + CEA [id number] Lab Appointment [id number] Follow Up Appointment [id number] CBC + Comprehensive Metabolic Panel + CEA [id number] Lab Appointment [id number] Follow Up Appointment [id number] CBC + Comprehensive Metabolic Panel + CEA [id number] Lab Appointment RETURN TO CLINIC: I reviewed the diagnosis, prognosis, and recommended treatment/procedure options with the patient (and/or their legal district sales representative), including the potential benefits, risks, side effects and alternative therapies. We also discussed the option of no treatment and the possibility of clinical trial participation, if applicable. All questions were addressed, and they demonstrated understanding. They provided informed consent to proceed with the proposed plan of care. BILLING AND COMPLIANCE: I reviewed external records from providers outside my specialty as summarized above. I spent a total of 50 minutes on this patient?s care on the day of their visit excluding time spent related to any billed procedures. This time includes time spent with the patient as well as time spent documenting in the medical record, reviewing patients records and tests, obtaining history, placing orders, communicating with other healthcare professionals, counseling the patient, family or caregiver, and/or care coordination for the diagnoses above. Electronically Signed by: Manuel Gloria MD T: 11:38 AM PCP: Suhas Nelson Referring: Suhas Nelson This document was completed utilizing speech recognition software. Grammatical errors, random word insertions, pronoun errors, and incomplete sentences are an occasional consequence of this system due to software limitations, ambient noise, and hardware issues. Any formal questions or concerns about the content, text or information contained within the body of this dictation should be directly addressed to the provider for clarification.
== END 2024-12-17 23:59 | disposition home or self-care (01) ==
LOC: SCTC 13:01
PROVIDERS: PCP Internal Medicine Hospice and Palliative Medicine; Referring Provider Internal Medicine Hospice and Palliative Medicine; Visit Provider Radiology Therapeutic Radiology
DX: C16.0 Malignant neoplasm of cardia (principal)
CPT/HCPCS: 36415; 80053; 82607; 82668; 82728; 82746; 83010; 83540; 83550; 83615; 85025; 85046; 99212; 99213; G0463

== ENCOUNTER 2025-01-15 09:58 | Outpatient (RCR) | payer MEDICARE, MEDICAID, SELFPAY ==
--- NOTE | 2025-01-13 01:31 | CTCFLWUP_ITS ---
Patient: HOMERO IGNACIO : 1955 Page 2 of 4 FOLLOW UP NOTE DATE OF SERVICE: 01/01/2025 NAME: HOMERO IGNACIO ACCOUNT: [id number] : 1955 AGE: 69 INTERVAL HISTORY: Patient is yet to start chemotherapy. ONCOLOGY HISTORY: DIAGNOSIS: Malignant neoplasm of stomach, unspecified [ICD10] C16.9; Malignant neoplasm of lower third of esophagus [ICD10] C15.5 DATE OF DIAGNOSIS: 09/13/2024 STAGE/TNM: TREATMENT HISTORY: Care?Plan Start?Date Cycle Day Intent FLOT?neoadjuvant 11/26/2024 1 14 Induction-Primary VENOfer?200mg?IV?wkly?for?10?weeks 11/26/2024 1 70 Induction-Primary FLOT?neoadjuvant 01/01/2025 1 14 Curative?(adjuvant) HISTORY OF PRESENT ILLNESS: 69-year-old male experienced weakness with significant anemia hemoglobin 5.6 on 09/12/2024 along with passing dark stools. Underwent esophagogastroduodenoscopy performed by Dr. Bashir 09/13/2024. Findings revealed small ulcerating mass with no active bleeding GE junction 45 cm from the incisors. Mass was nonobstructing and partially circumferential. Epicenter of tumor was at the GE junction, with Dr. Bashir feeling that likely esophageal tumor origin found at GE junction. Biopsy revealed poorly differentiated carcinoma, with no loss of expression in all 4 mismatch repair proteins. According to comment, by Dr. Ashton of [place] [facility], IHC staining not conclusive concerning cell of origin but most likely primary gastric adenocarcinoma poorly differentiated. Colonoscopy 09/14/2024 hemorrhoids and moderate diverticulosis with no specimens collected. CT scan abdomen pelvis 09/12/2024 revealed gastritis pattern with no abnormal accumulation of contrast in the GI tract. Patient has already seen Dr. Virk thoracic surgeon [facility] [place] who talk about possible surgery preceded by PET scan. 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 Tobacco Use:?Quit 12yrs ago- Smoke 1PPD x 30-40yrs ETOH Use:?Quit 30yrs ago - Drank at least 6pk beer daily xx 20+yrs Drug?Note:?Marijuana?-?occasionally Social?History?Note:?Lives?alone MEDICATIONS: 1. alprazolam - 1 mg Twice a Day 2. amlodipine benzoate - 5 mg Daily 3. Aspirin Child - 81 mg Daily 4. atorvastatin - 40 mg Daily 5. Compazine - 5 mg 5 mg Daily 6. EZETIMIBE - 10 mg Daily 7. folic acid - 1 mg 1 tab Daily 8. gabapentin - 100 mg Daily 9. Januvia - 25 mg Daily 10. Lasix - 20 mg As directed 11. morphine concentrate - 20 mg/mL 0.5 - 1 mL q6 12. morphine concentrate - 100 mg/5 mL (20 mg/mL) 0.5 - 1 mL Daily 13. nitroglycerin - 400 mcg/spray As directed 14. Evart - 10 mg Twice a Day 15. ondansetron - 8 mg 8 mg Daily 16. pantoprazole - 40 mg Twice a Day 17. PARoxetine HCl - 20 mg 1 tab Daily 18. potassium chloride - 10 mEq 1 tab As directed Medications Last Reconciled by Alanna Cox MD on 01/01/2025 ALLERGIES: prednisolone; LATEX; nitroglycerin REVIEW OF SYSTEMS: A complete 14-point review of systems was performed and is negative except as noted in interval history. PHYSICAL EXAMINATION: VITAL SIGNS: Temperature?98.3, B/P?142/85, Oxygen?Saturation?98% Weight?175?lbs (Change?since?12/11/24:?18?lbs) PAIN: 0 - No pain GENERAL APPEARANCE: Appears well, in no apparent distress, appropriately interactive. HEENT: Normocephalic, no temporal wasting, normal conjunctiva, no scleral icterus, normal hearing, lips without lesions, neck normal range of motion. CARDIOVASCULAR: Not assessed. PULMONARY: Normal respiratory effort, no respiratory distress or use of accessory muscles, speaking in full sentences, no tachypnea. EXTREMITIES: No pedal edema or cyanosis. SKIN: Normal skin appearance. NEUROLOGIC: Alert and oriented x4. PSHYCHIATRIC: Appropriate affect, mood normal, behavior normal, intact thought and speech. LABORATORY DATA: I have personally reviewed and interpreted each of the patient?s relevant lab tests, abnormal findings are below: Date 11/26/24 12/09/24 ??WHITE?BLOOD?COUNT?(Thou/mm3) ? 4.4 ??RED?BLOOD?COUNT?(Miln/mm3) ? 4.82 ??HEMOGLOBIN?(gm/dl) ? 8.1?L ??HEMATOCRIT?(%) ? 30.1?L ??PLATELET?COUNT?(Thou/mm3) ? 345 ??NEUTROPHILS?%,?AUTO?(%) ? 67 ??LYMPH?%,?AUTO?(%) ? 22 ??NEUTROPHILS,?AUTO?(Thou/mm3) ? 3.0 ??BLOOD?UREA?NITROGEN?(mg/dL) ? 13 ??CREATININE?(mg/dL) ? 0.90 ??RETICULOCYTE?ABSOLUTE?AUTO?(Biln/L) 38.7 ? ASSESSMENT/PLAN: #1. Poorly differentiated adenocarcinoma of oesophagus No loss of expression in all 4 mismatch repair proteins. Pathologist states that this may possibly be of gastric origin. Port catheter placement FLOT neoadjuvant ordered and patient consented for treatment #2. Thoracic surgeon Dr. Sully HERNANDEZ has already seen patient. Get records. ORDERS: Order # Description [id number] CBC + Comprehensive Metabolic Panel + CEA [id number] Lab Appointment [id number] Follow Up Appointment [id number] CBC + Comprehensive Metabolic Panel + CEA [id number] Lab Appointment [id number] Follow Up Appointment [id number] CBC + Comprehensive Metabolic Panel + CEA [id number] Lab Appointment [id number] Follow Up Appointment [id number] CBC + Comprehensive Metabolic Panel + CEA [id number] Lab Appointment RETURN TO CLINIC: I reviewed the diagnosis, prognosis, and recommended treatment/procedure options with the patient (and/or their legal retail service representative), including the potential benefits, risks, side effects and alternative therapies. We also discussed the option of no treatment and the possibility of clinical trial participation, if applicable. All questions were addressed, and they demonstrated understanding. They provided informed consent to proceed with the proposed plan of care. BILLING AND COMPLIANCE: I reviewed external records from providers outside my specialty as summarized above. I spent a total of 50 minutes on this patient?s care on the day of their visit excluding time spent related to any billed procedures. This time includes time spent with the patient as well as time spent documenting in the medical record, reviewing patients records and tests, obtaining history, placing orders, communicating with other healthcare professionals, counseling the patient, family or caregiver, and/or care coordination for the diagnoses above. Electronically Signed by: Manuel Gloria MD T: 1:28 AM CC: Nina?Mckay? PCP: Suhas Nelson Referring: Suhas Nelson This document was completed utilizing speech recognition software. Grammatical errors, random word insertions, pronoun errors, and incomplete sentences are an occasional consequence of this system due to software limitations, ambient noise, and hardware issues. Any formal questions or concerns about the content, text or information contained within the body of this dictation should be directly addressed to the provider for clarification.
[2025-01-13 15:42] LABS: Misc Send Out* See Sep Rpt
[2025-01-13 15:49] LABS: Basophils # (Auto) 0.1 Thou/mm3 (0.0-0.2); Basophils % (Auto) 1 % (0-2.5); Eosinophils # (Auto) 0.0 Thou/mm3 (0.0-0.5); Eosinophils % (Auto) 1 % (0-10); Hematocrit 30.4 % (41.0-53.0); Immature Granulocytes Auto 0.01 Thou/mm3 (0.00-0.00); Lymphocytes # (Auto) 1.2 Thou/mm3 (1.0-4.8); Lymphocytes % (Auto) 24 % (10-50); Mean Corpuscular HGB Conc 27.3 g/dl (31.0-37.0); Mean Corpuscular Hemoglobin 16.8 pg (25.0-35.0); Mean Corpuscular Volume 62 fL (80-100); Monocytes # (Auto) 0.3 Thou/mm3 (0.0-0.8); Monocytes % (Auto) 5 % (0-12); Neutrophils # (Auto) 3.4 Thou/mm3 (1.8-7.7); Neutrophils % (Auto) 69 % (37-80); Nucleated Red Blood Cell # 0.00 Thou/mm3 (0.00-0.00); Nucleated Red Blood Cell % 0 /100 WBC (0); Platelet Count 331 Thou/mm3 (140-440); RDW Standard Deviation 45.3 fL (35.1-43.9); Red Blood Count 4.94 Miln/mm3 (4.50-5.90); White Blood Count 4.9 Thou/mm3 (3.8-10.6)
[2025-01-13 15:52] LABS: Hemoglobin 8.3 g/dL (13.5-16.0)
[2025-01-13 16:11] LABS: Alanine Aminotransferase 12 U/L (10-49); Albumin, Serum 4.5 gm/dL (3.4-4.8); Albumin/Globulin Ratio 1.8 (1.2-2.2); Alkaline Phosphatase 67 U/L (46-116); Anion Gap 10 (7-16); Aspartate Amino Transferase 15 U/L (0-34); BUN/Creatinine Ratio 13 Ratio (12-20); Bilirubin,Total 0.4 mg/dL (0.3-1.2); Blood Urea Nitrogen 10 mg/dL (9-23); Calcium 8.3 mg/dL (8.3-10.6); Calcium (Corrected) 8.3 mg/dL (8.5-10.1); Carbon Dioxide 27.0 mMol/L (20.0-31.0); Carcinoembryonic Antigen 1.3 ng/mL (0.0-5.0); Chloride 104 mMol/L (98-107); Creatinine (Component) 0.8 mg/dL (0.6-1.3); Globulin 2.5 gm/dL (2.3-3.5); Glucose 229 mg/dL (74-106); Osmolality,Calculated 287 (275-295); Potassium 3.8 mMol/L (3.4-5.1); Sodium 141 mMol/L (136-145); Total Protein 7.0 gm/dL (5.7-8.2); eGFR > 60 See Note
== END 2025-01-17 23:59 | disposition home or self-care (01) ==
LOC: SCTC 09:58
PROVIDERS: PCP Internal Medicine Hospice and Palliative Medicine; Referring Provider Internal Medicine Hospice and Palliative Medicine; Visit Provider Internal Medicine Hematology & Oncology
DX: Z51.11 Encounter for antineoplastic chemotherapy (principal); C16.0 Malignant neoplasm of cardia
CPT/HCPCS: 36591; 80053; 82378; 85025; 96367; 96368; 96413; 96415; 96416; 96417; 99212; A4216; J0640; J1434; J1642; J2405; J3490; J7040; J7050; J7060; J9171; J9190; J9263; A9270; G0463

== ENCOUNTER 2025-02-10 13:13 | Outpatient (RCR) | payer MEDICARE, MEDICAID, SELFPAY ==
[2025-01-31 08:59] LABS: Basophils # (Auto) 0.1 Thou/mm3 (0.0-0.2); Basophils % (Auto) 1 % (0-2.5); Eosinophils # (Auto) 0.0 Thou/mm3 (0.0-0.5); Eosinophils % (Auto) 0 % (0-10); Hematocrit 33.7 % (41.0-53.0); Hemoglobin 9.4 g/dL (13.5-16.0); Immature Granulocytes Auto 0.01 Thou/mm3 (0.00-0.00); Lymphocytes # (Auto) 1.5 Thou/mm3 (1.0-4.8); Lymphocytes % (Auto) 24 % (10-50); Mean Corpuscular HGB Conc 27.9 g/dl (31.0-37.0); Mean Corpuscular Hemoglobin 17.9 pg (25.0-35.0); Mean Corpuscular Volume 64 fL (80-100); Monocytes # (Auto) 0.8 Thou/mm3 (0.0-0.8); Monocytes % (Auto) 13 % (0-12); Neutrophils # (Auto) 3.9 Thou/mm3 (1.8-7.7); Neutrophils % (Auto) 62 % (37-80); Nucleated Red Blood Cell # 0.00 Thou/mm3 (0.00-0.00); Nucleated Red Blood Cell % 0 /100 WBC (0); Platelet Count 410 Thou/mm3 (140-440); RDW Standard Deviation 51.9 fL (35.1-43.9); Red Blood Count 5.26 Miln/mm3 (4.50-5.90); White Blood Count 6.3 Thou/mm3 (3.8-10.6)
[2025-01-31 09:19] LABS: Alanine Aminotransferase 21 U/L (10-49); Albumin, Serum 4.4 gm/dL (3.4-4.8); Albumin/Globulin Ratio 2.1 (1.2-2.2); Alkaline Phosphatase 63 U/L (46-116); Anion Gap 8 (7-16); Aspartate Amino Transferase 18 U/L (0-34); BUN/Creatinine Ratio 14 Ratio (12-20); Bilirubin,Total 0.4 mg/dL (0.3-1.2); Blood Urea Nitrogen 11 mg/dL (9-23); Calcium 8.4 mg/dL (8.3-10.6); Calcium (Corrected) 8.4 mg/dL (8.5-10.1); Carbon Dioxide 25.7 mMol/L (20.0-31.0); Carcinoembryonic Antigen 1.6 ng/mL (0.0-5.0); Chloride 106 mMol/L (98-107); Creatinine (Component) 0.8 mg/dL (0.6-1.3); Globulin 2.1 gm/dL (2.3-3.5); Glucose 144 mg/dL (74-106); Osmolality,Calculated 281 (275-295); Potassium 4.0 mMol/L (3.4-5.1); Sodium 140 mMol/L (136-145); Total Protein 6.5 gm/dL (5.7-8.2); eGFR > 60 See Note
== END 2025-02-16 23:59 | disposition home or self-care (01) ==
LOC: SCTC 13:13
PROVIDERS: PCP Internal Medicine Hospice and Palliative Medicine; Referring Provider Internal Medicine Hospice and Palliative Medicine; Visit Provider Internal Medicine Hematology & Oncology
DX: Z51.11 Encounter for antineoplastic chemotherapy (principal); C15.5 Malignant neoplasm of lower third of esophagus
CPT/HCPCS: 36430; 36591; 80053; 82378; 85025; 96365; 96366; 96367; 96368; 96375; 96413; 96415; 96416; 96417; A4216; J0640; J1434; J1642; J1756; J2405; J2919; J3490; J7040; J7050; J7060; J9171; J9190; J9263; A9270

== ENCOUNTER 2025-03-11 11:29 | Outpatient (RCR) | payer MEDICARE, MEDICAID, SELFPAY ==
[2025-02-17 09:03] LABS: Basophils # (Auto) 0.1 Thou/mm3 (0.0-0.2); Basophils % (Auto) 2 % (0-2.5); Eosinophils # (Auto) 0.0 Thou/mm3 (0.0-0.5); Eosinophils % (Auto) 0 % (0-10); Hematocrit 35.6 % (41.0-53.0); Hemoglobin 10.1 g/dL (13.5-16.0); Immature Granulocytes Auto 0.00 Thou/mm3 (0.00-0.00); Lymphocytes # (Auto) 1.1 Thou/mm3 (1.0-4.8); Lymphocytes % (Auto) 40 % (10-50); Mean Corpuscular HGB Conc 28.4 g/dl (31.0-37.0); Mean Corpuscular Hemoglobin 19.5 pg (25.0-35.0); Mean Corpuscular Volume 69 fL (80-100); Monocytes # (Auto) 0.6 Thou/mm3 (0.0-0.8); Monocytes % (Auto) 23 % (0-12); Neutrophils # (Auto) 0.9 Thou/mm3 (1.8-7.7); Neutrophils % (Auto) 35 % (37-80); Nucleated Red Blood Cell # 0.00 Thou/mm3 (0.00-0.00); Nucleated Red Blood Cell % 0 /100 WBC (0); Platelet Count 240 Thou/mm3 (140-440); RDW Standard Deviation 69.3 fL (35.1-43.9); Red Blood Count 5.19 Miln/mm3 (4.50-5.90); White Blood Count 2.7 Thou/mm3 (3.8-10.6)
[2025-02-17 09:15] LABS: Alanine Aminotransferase 38 U/L (10-49); Albumin, Serum 4.2 gm/dL (3.4-4.8); Albumin/Globulin Ratio 1.8 (1.2-2.2); Alkaline Phosphatase 69 U/L (46-116); Anion Gap 8 (7-16); Aspartate Amino Transferase < 8 U/L (0-34); BUN/Creatinine Ratio 13 Ratio (12-20); Bilirubin,Total 0.3 mg/dL (0.3-1.2); Blood Urea Nitrogen 10 mg/dL (9-23); Calcium 8.6 mg/dL (8.3-10.6); Calcium (Corrected) 8.6 mg/dL (8.5-10.1); Carbon Dioxide 25.7 mMol/L (20.0-31.0); Chloride 108 mMol/L (98-107); Creatinine (Component) 0.8 mg/dL (0.6-1.3); Globulin 2.4 gm/dL (2.3-3.5); Glucose 217 mg/dL (74-106); Osmolality,Calculated 289 (275-295); Potassium 3.7 mMol/L (3.4-5.1); Sodium 142 mMol/L (136-145); Total Protein 6.6 gm/dL (5.7-8.2); eGFR > 60 See Note
[2025-02-17 09:19] LABS: Carcinoembryonic Antigen 2.8 ng/mL (0.0-5.0)
[2025-02-18 08:43] LABS: Basophils # (Auto) 0.1 Thou/mm3 (0.0-0.2); Basophils % (Auto) 1 % (0-2.5); Eosinophils # (Auto) 0.0 Thou/mm3 (0.0-0.5); Eosinophils % (Auto) 0 % (0-10); Hematocrit 34.9 % (41.0-53.0); Hemoglobin 10.1 g/dL (13.5-16.0); Immature Granulocytes Auto 0.09 Thou/mm3 (0.00-0.00); Lymphocytes # (Auto) 1.6 Thou/mm3 (1.0-4.8); Lymphocytes % (Auto) 13 % (10-50); Mean Corpuscular HGB Conc 28.9 g/dl (31.0-37.0); Mean Corpuscular Hemoglobin 19.5 pg (25.0-35.0); Mean Corpuscular Volume 68 fL (80-100); Monocytes # (Auto) 1.8 Thou/mm3 (0.0-0.8); Monocytes % (Auto) 15 % (0-12); Neutrophils # (Auto) 9.0 Thou/mm3 (1.8-7.7); Neutrophils % (Auto) 71 % (37-80); Nucleated Red Blood Cell # 0.00 Thou/mm3 (0.00-0.00); Nucleated Red Blood Cell % 0 /100 WBC (0); Platelet Count 237 Thou/mm3 (140-440); RDW Standard Deviation 68.8 fL (35.1-43.9); Red Blood Count 5.17 Miln/mm3 (4.50-5.90); White Blood Count 12.6 Thou/mm3 (3.8-10.6)
--- NOTE | 2025-03-03 10:53 | CTCFLWUP_ITS ---
Patient: HOMERO IGNACIO : 1955 Page 2 of 2 FOLLOW UP NOTE DATE OF SERVICE: 03/03/2025 NAME: HOMERO IGNACIO ACCOUNT: [id number] : 1955 AGE: 69 INTERVAL HISTORY: Summary --patient completed 3 cycles of FLOT. Patient was seen by surgery and planned for surgery on 06 April 2024. Patient will do surgery after cycle 4. Patient will be getting perioperative therapy after the surgery. PET CT scan shows localized disease and no metastasis. ONCOLOGY HISTORY: DIAGNOSIS: Malignant neoplasm of stomach, unspecified [ICD10] C16.9; Malignant neoplasm of lower third of esophagus [ICD10] C15.5 DATE OF DIAGNOSIS: 09/13/2024 STAGE/TNM: TREATMENT HISTORY: Care?Plan Start?Date Cycle Day Intent FLOT?neoadjuvant 11/26/2024 1 14 Induction-Primary VENOfer?200mg?IV?wkly?for?10?weeks 01/20/2025 1 70 Induction-Primary FLOT?neoadjuvant 01/01/2025 1 14 Curative?(adjuvant) FLOT?Perioperative 03/03/2025 1 14 Curative?(primary) HISTORY OF PRESENT ILLNESS: 69-year-old male experienced weakness with significant anemia hemoglobin 5.6 on 09/12/2024 along with passing dark stools. Underwent esophagogastroduodenoscopy performed by Dr. Bashir 09/13/2024. Findings revealed small ulcerating mass with no active bleeding GE junction 45 cm from the incisors. Mass was nonobstructing and partially circumferential. Epicenter of tumor was at the GE junction, with Dr. Bashir feeling that likely esophageal tumor origin found at GE junction. Biopsy revealed poorly differentiated carcinoma, with no loss of expression in all 4 mismatch repair proteins. According to comment, by Dr. 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 Colonoscopy 09/14/2024 hemorrhoids and moderate diverticulosis with no specimens collected. CT scan abdomen pelvis 09/12/2024 revealed gastritis pattern with no abnormal accumulation of contrast in the GI tract. Patient has already seen Dr. Virk thoracic surgeon [facility] who talk about possible surgery preceded by PET scan. 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 Tobacco Use:?Quit 12yrs ago- Smoke 1PPD x 30-40yrs ETOH Use:?Quit 30yrs ago - Drank at least 6pk beer daily xx 20+yrs Drug?Note:?Marijuana?-?occasionally Social?History?Note:?Lives?alone MEDICATIONS: 1. alprazolam - 1 mg Twice a Day 2. amlodipine benzoate - 5 mg Daily 3. Aspirin Child - 81 mg Daily 4. atorvastatin - 40 mg Daily 5. Compazine - 5 mg 5 mg Daily 6. dexamethasone - 4 mg 1 tab Twice daily 7. EZETIMIBE - 10 mg Daily 8. folic acid - 1 mg 1 tab Daily 9. gabapentin - 100 mg Daily 10. Januvia - 25 mg Daily 11. Lasix - 20 mg As directed 12. nitroglycerin - 400 mcg/spray As directed 13. [place] - 10 mg Twice a Day 14. ondansetron - 8 mg 1 tab Daily 15. pantoprazole - 40 mg Twice a Day 16. PARoxetine HCl - 20 mg 1 tab Daily 17. potassium chloride - 10 mEq 1 tab As directed Medications Last Reconciled by Alanna Cox MD on 03/03/2025 ALLERGIES: prednisolone; LATEX; nitroglycerin REVIEW OF SYSTEMS: A complete 14-point review of systems was performed and is negative except as noted in interval history. PHYSICAL EXAMINATION: VITAL SIGNS: Temperature?98.1, B/P?133/76, Oxygen?Saturation?97% Weight?183?lbs (Change?since?02/19/25:?-0.6?lbs) PAIN: 0 - No pain ECOG Performance Status: 0 - Asymptomatic and fully active GENERAL APPEARANCE: Appears well, in no apparent distress, appropriately interactive. HEENT: Normocephalic, no temporal wasting, normal conjunctiva, no scleral icterus, normal hearing, lips without lesions, neck normal range of motion. CARDIOVASCULAR: Not assessed. PULMONARY: Normal respiratory effort, no respiratory distress or use of accessory muscles, speaking in full sentences, no tachypnea. EXTREMITIES: No pedal edema or cyanosis. SKIN: Normal skin appearance. NEUROLOGIC: Alert and oriented x4. PSHYCHIATRIC: Appropriate affect, mood normal, behavior normal, intact thought and speech. LABORATORY DATA: I have personally reviewed and interpreted each of the patient?s relevant lab tests, abnormal findings are below: Date 02/17/25 02/18/25 ??WHITE?BLOOD?COUNT?(Thou/mm3) 2.7?L 12.6?H ??RED?BLOOD?COUNT?(Miln/mm3) 5.19 5.17 ??HEMOGLOBIN?(gm/dl) 10.1?L 10.1?L ??HEMATOCRIT?(%) 35.6?L 34.9?L ??PLATELET?COUNT?(Thou/mm3) 240 237 ??NEUTROPHILS?%,?AUTO?(%) 35?L 71 ??LYMPH?%,?AUTO?(%) 40 13 ??NEUTROPHILS,?AUTO?(Thou/mm3) 0.9?L 9.0?H ??GLUCOSE,RANDOM?(mg/dL) 217?H ? ??BLOOD?UREA?NITROGEN?(mg/dL) 10 ? ??CREATININE?(mg/dL) 0.80 ? ??SODIUM?(mmol/L) 142 ? ??POTASSIUM?(mmol/L) 3.7 ? ??CHLORIDE?(mmol/L) 108?H ? ??CrCl?(CandG)?(ml/min) 100.88 ? ??AST/SGOT?(Unit/L) <?8 ? ??ALT/SGPT?(Unit/L) 38 ? ??ALKALINE?PHOSPHATASE?(Unit/L) 69 ? ??BILIRUBIN,?TOTAL?(mg/dL) 0.3 ? ??PROTEIN?TOTAL?(gm/dl) 6.6 ? ??ALBUMIN,?SERUM?(gm/dl) 4.2 ? ??GLOBULIN?(gm/dl) 2.4 ? ??ALBUMIN/GLOBULIN?RATIO 1.8 ? ??CALCIUM,?SERUM?(mg/dL) 8.6 ? ??CALCIUM?SERUM?(CORRECTED)?(mg/dL) 8.6 ? ??CEA?(O*)?(ng/ml) 2.8 ? ASSESSMENT/PLAN: #1. Poorly differentiated adenocarcinoma of oesophagus No loss of expression in all 4 mismatch repair proteins. Pathologist states that this may possibly be of gastric origin. Completed 3 cycles of FLOT Plan to complete 4 cycles of FLOT get surgery followed by 4 other cycles of FLOT #2. Thoracic surgeon Dr. Sully HERNANDEZ has already seen patient. Plan for surgery on April 06 Get records. ORDERS: Order # Description [id number] Follow Up Appointment [id number] Follow Up Appointment [id number] CBC + Comprehensive Metabolic Panel + [facility] [id number] Lab Appointment [id number] CBC + Comprehensive Metabolic Panel + [facility] [id number] Lab Appointment [id number] Follow Up Appointment [id number] CBC + Comprehensive Metabolic Panel + [facility] [id number] Lab Appointment [id number] Follow Up Appointment [id number] CBC + Comprehensive Metabolic Panel + [facility]A [id number] Lab Appointment [id number] Follow Up Appointment [id number] CBC + Comprehensive Metabolic Panel + CEA [id number] Lab Appointment RETURN TO CLINIC: I reviewed the diagnosis, prognosis, and recommended treatment/procedure options with the patient (and/or their legal community representative), including the potential benefits, risks, side effects and alternative therapies. We also discussed the option of no treatment and the possibility of clinical trial participation, if applicable. All questions were addressed, and they demonstrated understanding. They provided informed consent to proceed with the proposed plan of care. BILLING AND COMPLIANCE: I reviewed external records from providers outside my specialty as summarized above. I spent a total of 50 minutes on this patient?s care on the day of their visit excluding time spent related to any billed procedures. This time includes time spent with the patient as well as time spent documenting in the medical record, reviewing patients records and tests, obtaining history, placing orders, communicating with other healthcare professionals, counseling the patient, family or caregiver, and/or care coordination for the diagnoses above. Electronically Signed by: Manuel Gloria MD T: 10:51 AM CC: Nina?Mckay? PCP: Suhas Nelson Referring: Suhas Nelson This document was completed utilizing speech recognition software. Grammatical errors, random word insertions, pronoun errors, and incomplete sentences are an occasional consequence of this system due to software limitations, ambient noise, and hardware issues. Any formal questions or concerns about the content, text or information contained within the body of this dictation should be directly addressed to the provider for clarification.
[2025-03-05 15:40] LABS: Basophils # (Auto) 0.1 Thou/mm3 (0.0-0.2); Basophils % (Auto) 1 % (0-2.5); Eosinophils # (Auto) 0.0 Thou/mm3 (0.0-0.5); Eosinophils % (Auto) 0 % (0-10); Hematocrit 37.3 % (41.0-53.0); Hemoglobin 10.7 g/dL (13.5-16.0); Immature Granulocytes Auto 0.03 Thou/mm3 (0.00-0.00); Lymphocytes # (Auto) 2.0 Thou/mm3 (1.0-4.8); Lymphocytes % (Auto) 47 % (10-50); Mean Corpuscular HGB Conc 28.7 g/dl (31.0-37.0); Mean Corpuscular Hemoglobin 19.8 pg (25.0-35.0); Mean Corpuscular Volume 69 fL (80-100); Monocytes # (Auto) 1.2 Thou/mm3 (0.0-0.8); Monocytes % (Auto) 30 % (0-12); Neutrophils # (Auto) 0.9 Thou/mm3 (1.8-7.7); Neutrophils % (Auto) 21 % (37-80); Nucleated Red Blood Cell # 0.00 Thou/mm3 (0.00-0.00); Nucleated Red Blood Cell % 0 /100 WBC (0); Platelet Count 320 Thou/mm3 (140-440); RDW Standard Deviation 69.2 fL (35.1-43.9); Red Blood Count 5.41 Miln/mm3 (4.50-5.90); White Blood Count 4.2 Thou/mm3 (3.8-10.6)
[2025-03-05 16:00] LABS: Carcinoembryonic Antigen 2.4 ng/mL (0.0-5.0)
[2025-03-05 16:01] LABS: Alanine Aminotransferase 27 U/L (10-49); Albumin, Serum 4.2 gm/dL (3.4-4.8); Albumin/Globulin Ratio 1.4 (1.2-2.2); Alkaline Phosphatase 75 U/L (46-116); Anion Gap 9 (7-16); Aspartate Amino Transferase 26 U/L (0-34); BUN/Creatinine Ratio 11 Ratio (12-20); Bilirubin,Total 0.3 mg/dL (0.3-1.2); Blood Urea Nitrogen 8 mg/dL (9-23); Calcium 8.7 mg/dL (8.3-10.6); Calcium (Corrected) 8.7 mg/dL (8.5-10.1); Carbon Dioxide 27.2 mMol/L (20.0-31.0); Chloride 105 mMol/L (98-107); Creatinine (Component) 0.7 mg/dL (0.6-1.3); Globulin 3.0 gm/dL (2.3-3.5); Glucose 100 mg/dL (74-106); Osmolality,Calculated 279 (275-295); Potassium 3.9 mMol/L (3.4-5.1); Sodium 141 mMol/L (136-145); Total Protein 7.2 gm/dL (5.7-8.2); eGFR > 60 See Note
== END 2025-03-19 23:59 | disposition home or self-care (01) ==
LOC: SCTC 11:29
PROVIDERS: PCP Internal Medicine Hospice and Palliative Medicine; Referring Provider Internal Medicine Hospice and Palliative Medicine; Visit Provider Internal Medicine Hematology & Oncology
DX: Z51.11 Encounter for antineoplastic chemotherapy (principal); C16.0 Malignant neoplasm of cardia
CPT/HCPCS: 36591; 80053; 82378; 85025; 96365; 96367; 96368; 96372; 96375; 96413; 96415; 96416; 96417; 99212; A4216; J0640; J1434; J1642; J1756; J2405; J2919; J3490; J7040; J7050; J7060; J9171; J9190; J9263; Q5101; A9270; G0463

== ENCOUNTER → 2025-03-11 | Outpatient (CLI) | payer MEDICARE, MEDICAID, SELFPAY ==
[2025-03-11 09:07] LABS: Alanine Aminotransferase 28 U/L (10-49); Albumin, Serum 4.2 gm/dL (3.4-4.8); Alkaline Phosphatase 181 U/L (46-116); Anion Gap 10 (7-16); Aspartate Amino Transferase 29 U/L (0-34); BUN/Creatinine Ratio 10 Ratio (12-20); Bilirubin,Direct < 0.1 mg/dL (0.0-0.3); Bilirubin,Total 0.3 mg/dL (0.3-1.2); Blood Urea Nitrogen 8 mg/dL (9-23); Calcium 8.5 mg/dL (8.3-10.6); Carbon Dioxide 26.3 mMol/L (20.0-31.0); Cardiac Risk Estimate 3.3 RATIO (4.0-6.7); Chloride 105 mMol/L (98-107); Cholesterol 98 mg/dL (132-200); Creatinine (Component) 0.8 mg/dL (0.6-1.3); Glucose 154 mg/dL (74-106); HDL Cholesterol 30 mg/dL (40-60); LDL Cholesterol,Calculated 50 mg/dL (0-130); Osmolality,Calculated 282 (275-295); Potassium 4.2 mMol/L (3.4-5.1); Sodium 141 mMol/L (136-145); Total Protein 7.2 gm/dL (5.7-8.2); Triglycerides 88 mg/dL (30-150); eGFR > 60 See Note
== END | disposition home or self-care (01) ==
PROVIDERS: PCP Internal Medicine Hospice and Palliative Medicine; Referring Provider Specialist; Visit Provider Specialist
DX: I10 Essential (primary) hypertension (principal); E78.5 Hyperlipidemia, unspecified
CPT/HCPCS: 36415; 80048; 80061; 80076